=== PATIENT | male | born 1985 | race Caucasian/White ===

== ENCOUNTER 2016-10-13 11:43 | Emergency (ER) | payer BC, SELFPAY ==
[2016-10-13] MEDS ORDERED: NORCO, ANEXSIA 5/325MG TABLET (HYDROcodone/ACETAMINOPHEN) As Ordered ONE (12:49)
--- NOTE | 2016-10-13 13:47 | REP ---
LEFT FOREARM: Two views. HISTORY: Pain after injury. FINDINGS: AP and lateral views of the left forearm demonstrate normal bones, joints, and soft tissues. No fracture or subluxation is seen. IMPRESSION: Negative left forearm. Signed by Mihir Jaime MD 10/13/2016 02:25 P
--- NOTE | 2016-10-13 13:57 | REP ---
T-spine series: Three views. History: Pain after fall. Findings: Thoracic vertebral body heights are preserved and alignment is normal. No fracture or collapse is seen. Disc spaces are maintained. Pedicles and posterior elements are intact. No paravertebral soft tissue mass is seen. Impression: No fracture or collapse seen. Signed by Mihir Jaime MD 10/13/2016 02:25 P
--- NOTE | 2016-10-13 13:59 | REP ---
LUMBAR SPINE SERIES: Five views. HISTORY: Pain after a fall. FINDINGS: Five views of the lumbar spine show preserved vertebral body heights and normal alignment. Disc spaces are maintained. Pedicles and posterior elements are intact. No fracture or collapse is seen. Psoas margins are symmetric. Sacrum and SI joints are unremarkable. IMPRESSION: Negative lumbar spine series. No traumatic abnormality noted. Signed by Mihir Jaime MD 10/13/2016 02:25 P
--- NOTE | 2016-10-13 14:23 | EDDOCDS ---
Physician Documentation [facility] Name: Thomas Starr Age: 30 yrs Sex: Male : 1985 Arrival Date: 10/13/2016 Time: 11:43 Bed PR Private MD: NO PRIMARY PHYSICIAN, . Disposition: 10/13/16 14:06 Discharged to Home/Self Care. Impression: Fall due to ice and snow, Fall (on) (from) other stairs and steps, Contusion of back wall of thorax, Contusion of left forearm. - Condition is Stable. - Discharge Instructions: Contusion. - Prescriptions for [place] 5- 325 mg Oral Tablet - take 1 tablet by ORAL route every 6 hours As needed MDD: 4 tabs; 12 tablet. - Medication Reconciliation, Local Pharmacy Hours form. - Follow up: Emergency Department; When: As needed; Reason: Worsening of conditions. [facility]; When: Call to arrange an appointment; Reason: Recheck today's complaints, Continuance of care, To establish care. - Problem is new. - Symptoms are unchanged. - Notes: THERE WERE NO FRACTURES ON YOUR XRAYS TODAY. PLEASE FOLLOW UP WITH PRIMARY CARE IN THE NEXT WEEK TO RECHECK YOUR SYMPTOMS. RETURN TO THE ER WITH ANY WORSENING SYMPTOMS. Historical: - Allergies: no known allergies; - Home Meds: 1. none - PMHx: back fracture; - PSHx: Appendectomy; right knee; - Social history: Smoking status: Patient states was never smoker of tobacco. No barriers to communication noted, The patient speaks fluent Mohawk, Speaks appropriately for age. - Family history: Not pertinent. - : The pt / caregiver states he / she is not on anticoagulants. Home medication list is obtained from the patient. - Exposure Risk Screening:: None identified. Vital Signs: 10/13 11:45 BP 136 / 92; Pulse 74; Resp 18 S; Temp 96.6(O); Pulse Ox 99% on R/A; Weight 95.25 kg / gr2 209.99 lbs (R); Height 6 ft. 0 in. (182.88 cm); Pain 8/10; 13:49 BP 135 / 86; Pulse 63; Resp 18; Temp 97.9(T); Pulse Ox 97% on R/A; Pain 8/10; nb2 14:21 Pain 6/10; ck1 11:45 Body Mass Index 28.48 (95.25 kg, 182.88 cm) gr2 MDM: 12:45 HYDROcodone-acetaminophen 5 mg-325 mg 1 tabs PO once ordered. dt4 12:47 Spine, Thoracic 3 Views Ordered. EDMS 12:47 Spine. Lumbosacral, Complete Ordered. EDMS 12:47 Forearm (radius/ulna) Ordered. EDMS 12:53 Financial registration complete. mm15 14:16 [facility] Payment Agreement was scanned into [employer] and attached to record. mm15 Administered Medications: 12:50 Drug: HYDROcodone-acetaminophen 1 tabs [hydrocodone 5 mg-acetaminophen 325 mg tablet (1 ck1 tabs)] Route: PO; 14:21 Follow up: Pain 6 Adult; Response: Confirmed pt not driving.; No Adverse Reaction; ck1 No significant change. Signatures: Dispatcher [employer] EDNM Daly Henning RN RN ck1 Angeles Ponce RN RN jo3 Telma Meredith mm15 Neeru Mtz PA-C PAFina dt4 The chart was reviewed and I authenticate all verbal orders and agree with the evaluation and treatment provided.Attachments: 14:16 [facility] Payment Agreement mm15 MTDD
--- NOTE | 2016-10-13 14:23 | EDDOCDS ---
Nurse's Notes [facility] Name: Thomas Starr Age: 30 yrs Sex: Male : 1985 Arrival Date: 10/13/2016 Time: 11:43 Bed PR1 / 25 Private MD: NO PRIMARY PHYSICIAN, . Diagnosis: Fall due to ice and snow;Fall (on) (from) other stairs and steps;Contusion of back wall of thorax;Contusion of left forearm Presentation: 10/13 11:48 Presenting complaint: Patient states: Slipped and fell on stairs. Has c/o pain all over jo3 back and left arm above the elbow. Adult Sepsis Screening: The patient does not have new or worsening altered mentation. Patient's respiratory rate is less than 22. Systolic blood pressure is greater than 100. Patient has a qSOFA score of 0- Negative Sepsis Screen. Suicide/Homicide risk assessment- the patient denies having any suicidal and/or homicidal ideations and does not present with any other emotional, behavioral or mental health complaints. 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 Transition of care: patient was not received from another setting of care. 11:48 Acuity: MISSAEL Level 4 jo3 11:48 Method Of Arrival: Walkin/Carried/Asstd jo3 Triage Assessment: 11:50 General: Appears in no apparent distress, Behavior is appropriate for age, cooperative, jo3 pleasant. Pain: Pain currently is 8 out of 10 on a pain scale. HIV screening NA for this visit Offered previously. Historical: - Allergies: no known allergies; - Home Meds: 1. none - PMHx: back fracture; - PSHx: Appendectomy; right knee; - Social history: Smoking status: Patient states was never smoker of tobacco. No barriers to communication noted, The patient speaks fluent Hungarian, Speaks appropriately for age. - Family history: Not pertinent. - : The pt / caregiver states he / she is not on anticoagulants. Home medication list is obtained from the patient. - Exposure Risk Screening:: None identified. Screenin:51 Screening information is obtained from the patient. Fall risk: No risks identified. ck1 Assistance ADL's: requires no assistance with activities of daily living. Abuse/DV Screen: The patient / caregiver reports he/she is: not in a situation that causes fear, pain or injury. Nutritional screening: No deficits noted. Advance Directives: Currently, there is no health care proxy. home support is adequate. Assessment: 12:51 General: Appears uncomfortable, Behavior is appropriate for age, cooperative. Pain: ck1 Location: back Pain currently is 9 out of 10 on a pain scale. Derm: Skin is intact, is healthy with good turgor, Skin is pink, warm & dry. Musculoskeletal: Circulation, motion, and sensation intact Range of motion intact in all extremities. 13:50 General: Appears in no apparent distress, comfortable, Behavior is appropriate for age, ck1 cooperative. Pain: Location: back Pain currently is 6 out of 10 on a pain scale. Neurological: Level of Consciousness is awake, alert, obeys commands. Respiratory: Respiratory effort is unlabored, Respiratory pattern is regular, symmetrical. GI: No deficits noted. Derm: Skin is intact, is healthy with good turgor, Skin is pink, warm & dry. Musculoskeletal: Circulation, motion, and sensation intact Range of motion intact in all extremities. Vital Signs: 11:45 BP 136 / 92; Pulse 74; Resp 18 S; Temp 96.6(O); Pulse Ox 99% on R/A; Weight 95.25 kg gr2 (R); Height 6 ft. 0 in. (182.88 cm); Pain 8/10; 13:49 BP 135 / 86; Pulse 63; Resp 18; Temp 97.9(T); Pulse Ox 97% on R/A; Pain 8/10; nb2 14:21 Pain 6/10; ck1 11:45 Body Mass Index 28.48 (95.25 kg, 182.88 cm) gr2 Vitals: 11:45 Log In Time: October 13, 2016 at 11:45. gr2 ED Course: 11:44 Patient visited by Mario aWng. gr2 11:44 NO PRIMARY PHYSICIAN, . is Private Physician. gr2 11:44 Patient moved to Waiting gr2 11:46 Patient visited by Mario Wang. gr2 11:46 Patient moved to Pre RCE gr2 11:49 Triage Initiated jo3 11:50 Patient visited by Angeles Ponce RN. jo3 12:08 Patient moved to Triage 2 ck1 12:30 Neeru Mtz PA-C is PHCP. dt4 12:30 Hiader Monzon MD is Attending Physician. dt4 12:30 Patient visited by Neeru Mtz PA-C. dt4 12:50 Patient moved to 1 jf3 12:51 The patient / caregiver is instructed regarding the plan of care and ED course. ck1 12:51 No IV's were initiated during this patient's visit. No procedures done that require ck1 assistance. 13:46 Patient moved to PR1 / 25 kc3 13:49 Patient visited by Sylvia Gann. nb2 14:06 [facility] is Referral Physician. dt4 14:16 [facility] Payment Agreement was scanned into [employer] and attached to record. mm15 14:18 Forearm (radius/ulna) Returned. EDMS 14:18 Spine, Thoracic 3 Views Returned. EDMS 14:18 Spine. Lumbosacral, Complete Returned. EDMS Administered Medications: 12:50 Drug: HYDROcodone-acetaminophen 1 tabs [hydrocodone 5 mg-acetaminophen 325 mg tablet (1 ck1 tabs)] Route: PO; 14:21 Follow up: Pain 6/10 Adult; Response: Confirmed pt not driving.; No Adverse Reaction; ck1 No significant change. Order Results: Radiology Order: Spine, Thoracic 3 Views Test: Spine, Thoracic 3 Views REASON FOR EXAMINATION: LOWER T-SPINE PAIN AFTER FALL; T-spine series: Three views.; ; History: Pain after fall.; ; Findings: Thoracic vertebral body heights are preserved and alignment is normal.; No fracture or collapse is seen. Disc spaces are maintained. Pedicles and; posterior elements are intact. No paravertebral soft tissue mass is seen.; ; Impression:; ; No fracture or collapse seen.; ; ; ; ; Unreviewed; Radiology Order: Spine. Lumbosacral, Complete Test: Spine. Lumbosacral, Complete REASON FOR EXAMINATION: BACK PAIN AFTER INJURY; LUMBAR SPINE SERIES: Five views.; ; HISTORY: Pain after a fall.; ; FINDINGS: Five views of the lumbar spine show preserved vertebral body heights; and normal alignment. Disc spaces are maintained. Pedicles and posterior; elements are intact. No fracture or collapse is seen. Psoas margins are; symmetric. Sacrum and SI joints are unremarkable.; ; IMPRESSION:; Negative lumbar spine series. No traumatic abnormality noted.; ; ; ; ; Unreviewed; Radiology Order: Forearm (radius/ulna) Test: Forearm (radius/ulna) REASON FOR EXAMINATION: LEFT FOREARM PAIN/INJURY; LEFT FOREARM: Two views.; ; HISTORY: Pain after injury.; ; FINDINGS: AP and lateral views of the left forearm demonstrate normal bones,; joints, and soft tissues. No fracture or subluxation is seen.; ; IMPRESSION:; Negative left forearm.; ; ; ; ; Unreviewed; Outcome: 14:06 Discharge ordered by Provider. dt4 14:20 Discharge Assessment: Patient awake, alert and oriented x 3. No cognitive and/or ck1 functional deficits noted. Patient verbalized understanding of disposition instructions. patient administered narcotics - yes. Pt provided with safe discharge. The following High Risk Discharge criteria are identified: None. Discharged to home ambulatory, with significant other. Condition: stable. Discharge instructions given to patient, Instructed on discharge instructions, follow up and referral plans. medication usage, Demonstrated understanding of instructions, medications, Pt was receptive of discharge instructions/ teaching. Prescriptions given X 1. No special radiology studies were completed. Property :Personal belongings accompany Pt. 14:22 Patient left the ED. ck1 Signatures: Dispatcher [employer] EDMS Daly HenningRN RN ck1 Agneles PonceRN RN Mario Reardon gr2 Telma Meredith mm15 Neeru Mtz, PAFina PAKaelynC dt4 Gabrielle Cedeño,RN RN [email or web address] Demario CoronaRN RN jelani3 Sylvia Gann2 MTDD
--- NOTE | 2016-10-15 15:23 | EDDOCDS ---
Nurse's Notes [facility] Name: Thomas Starr Age: 30 yrs Sex: Male : 1985 Arrival Date: 10/13/2016 Time: 11:43 Bed PR1 / 25 Private MD: NO PRIMARY PHYSICIAN, . Diagnosis: Fall due to ice and snow;Fall (on) (from) other stairs and steps;Contusion of back wall of thorax;Contusion of left forearm Presentation: 10/13 11:48 Presenting complaint: Patient states: Slipped and fell on stairs. Has c/o pain all over jo3 back and left arm above the elbow. Adult Sepsis Screening: The patient does not have new or worsening altered mentation. Patient's respiratory rate is less than 22. Systolic blood pressure is greater than 100. Patient has a qSOFA score of 0- Negative Sepsis Screen. Suicide/Homicide risk assessment- the patient denies having any suicidal and/or homicidal ideations and does not present with any other emotional, behavioral or mental health complaints. 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 Transition of care: patient was not received from another setting of care. 11:48 Acuity: MISSAEL Level 4 jo3 11:48 Method Of Arrival: Walkin/Carried/Asstd jo3 Triage Assessment: 11:50 General: Appears in no apparent distress, Behavior is appropriate for age, cooperative, jo3 pleasant. Pain: Pain currently is 8 out of 10 on a pain scale. HIV screening NA for this visit Offered previously. Historical: - Allergies: no known allergies; - Home Meds: 1. none - PMHx: back fracture; - PSHx: Appendectomy; right knee; - Social history: Smoking status: Patient states was never smoker of tobacco. No barriers to communication noted, The patient speaks fluent Persian, Speaks appropriately for age. - Family history: Not pertinent. - : The pt / caregiver states he / she is not on anticoagulants. Home medication list is obtained from the patient. - Exposure Risk Screening:: None identified. Screenin:51 Screening information is obtained from the patient. Fall risk: No risks identified. ck1 Assistance ADL's: requires no assistance with activities of daily living. Abuse/DV Screen: The patient / caregiver reports he/she is: not in a situation that causes fear, pain or injury. Nutritional screening: No deficits noted. Advance Directives: Currently, there is no health care proxy. home support is adequate. Assessment: 12:51 General: Appears uncomfortable, Behavior is appropriate for age, cooperative. Pain: ck1 Location: back Pain currently is 9 out of 10 on a pain scale. Derm: Skin is intact, is healthy with good turgor, Skin is pink, warm & dry. Musculoskeletal: Circulation, motion, and sensation intact Range of motion intact in all extremities. 13:50 General: Appears in no apparent distress, comfortable, Behavior is appropriate for age, ck1 cooperative. Pain: Location: back Pain currently is 6 out of 10 on a pain scale. Neurological: Level of Consciousness is awake, alert, obeys commands. Respiratory: Respiratory effort is unlabored, Respiratory pattern is regular, symmetrical. GI: No deficits noted. Derm: Skin is intact, is healthy with good turgor, Skin is pink, warm & dry. Musculoskeletal: Circulation, motion, and sensation intact Range of motion intact in all extremities. Vital Signs: 11:45 BP 136 / 92; Pulse 74; Resp 18 S; Temp 96.6(O); Pulse Ox 99% on R/A; Weight 95.25 kg gr2 (R); Height 6 ft. 0 in. (182.88 cm); Pain 8/10; 13:49 BP 135 / 86; Pulse 63; Resp 18; Temp 97.9(T); Pulse Ox 97% on R/A; Pain 8/10; nb2 14:21 Pain 6/10; ck1 11:45 Body Mass Index 28.48 (95.25 kg, 182.88 cm) gr2 Vitals: 11:45 Log In Time: October 13, 2016 at 11:45. gr2 ED Course: 11:44 Patient visited by Mario Wang. gr2 11:44 NO PRIMARY PHYSICIAN, . is Private Physician. gr2 11:44 Patient moved to Waiting gr2 11:46 Patient visited by Mario Wang. gr2 11:46 Patient moved to Pre RCE gr2 11:49 Triage Initiated jo3 11:50 Patient visited by Angeles Ponce RN. jo3 12:08 Patient moved to Triage 2 ck1 12:30 Neeru Mtz PA-C is PHCP. dt4 12:30 Haider Monzon MD is Attending Physician. dt4 12:30 Patient visited by Neeru Mtz PA-C. dt4 12:50 Patient moved to TR1 jf3 12:51 The patient / caregiver is instructed regarding the plan of care and ED course. ck1 12:51 No IV's were initiated during this patient's visit. No procedures done that require ck1 assistance. 13:46 Patient moved to PR1 / 25 kc3 13:49 Patient visited by Sylvia Gann. nb2 14:06 [facility] is Referral Physician. dt4 14:16 [facility] Payment Agreement was scanned into [employer] and attached to record. mm15 14:18 Forearm (radius/ulna) Returned. EDMS 14:18 Spine, Thoracic 3 Views Returned. EDMS 14:18 Spine. Lumbosacral, Complete Returned. EDMS 10/14 10:24 T-Sheet-- Draft Copy was scanned into [employer] and attached to record. gb Administered Medications: 10/13 12:50 Drug: HYDROcodone-acetaminophen 1 tabs [hydrocodone 5 mg-acetaminophen 325 mg tablet (1 ck1 tabs)] Route: PO; 14:21 Follow up: Pain 6/10 Adult; Response: Confirmed pt not driving.; No Adverse Reaction; ck1 No significant change. Order Results: Radiology Order: Spine, Thoracic 3 Views Test: Spine, Thoracic 3 Views REASON FOR EXAMINATION: LOWER T-SPINE PAIN AFTER FALL; T-spine series: Three views.; ; History: Pain after fall.; ; Findings: Thoracic vertebral body heights are preserved and alignment is normal.; No fracture or collapse is seen. Disc spaces are maintained. Pedicles and; posterior elements are intact. No paravertebral soft tissue mass is seen.; ; Impression:; ; No fracture or collapse seen.; ; ; Signed by; Mihir Jaime MD 10/13/2016 02:25 P; Radiology Order: Spine. Lumbosacral, Complete Test: Spine. Lumbosacral, Complete REASON FOR EXAMINATION: BACK PAIN AFTER INJURY; LUMBAR SPINE SERIES: Five views.; ; HISTORY: Pain after a fall.; ; FINDINGS: Five views of the lumbar spine show preserved vertebral body heights; and normal alignment. Disc spaces are maintained. Pedicles and posterior; elements are intact. No fracture or collapse is seen. Psoas margins are; symmetric. Sacrum and SI joints are unremarkable.; ; IMPRESSION: Negative lumbar spine series. No traumatic abnormality noted.; ; ; Signed by; Mihir Jaime MD 10/13/2016 02:25 P; Radiology Order: Forearm (radius/ulna) Test: Forearm (radius/ulna) REASON FOR EXAMINATION: LEFT FOREARM PAIN/INJURY; LEFT FOREARM: Two views.; ; HISTORY: Pain after injury.; ; FINDINGS: AP and lateral views of the left forearm demonstrate normal bones,; joints, and soft tissues. No fracture or subluxation is seen.; ; IMPRESSION: Negative left forearm.; ; ; Signed by; Mihir Jaime MD 10/13/2016 02:25 P; Outcome: 14:06 Discharge ordered by Provider. dt4 14:20 Discharge Assessment: Patient awake, alert and oriented x 3. No cognitive and/or ck1 functional deficits noted. Patient verbalized understanding of disposition instructions. patient administered narcotics - yes. Pt provided with safe discharge. The following High Risk Discharge criteria are identified: None. Discharged to home ambulatory, with significant other. Condition: stable. Discharge instructions given to patient, Instructed on discharge instructions, follow up and referral plans. medication usage, Demonstrated understanding of instructions, medications, Pt was receptive of discharge instructions/ teaching. Prescriptions given X 1. No special radiology studies were completed. Property :Personal belongings accompany Pt. 14:22 Patient left the ED. ck1 Signatures: Dispatcher [employer] EDMS Lissa Doss, Reg Reg gb Daly HenningRN RN ck1 Angeles PonceRN RN Mario Reardon gr2 Telma Meredith mm15 Neeru Mtz, PA-C PA-C dt4 Gabrielle Cedeño RN RN kc3 Demario Corona,MARISA RN jelani3 Sylvia Gann2 Chart Complete MTDD
--- NOTE | 2016-10-15 15:23 | EDDOCDS ---
Physician Documentation [facility] Name: Thomas Starr Age: 30 yrs Sex: Male : 1985 Arrival Date: 10/13/2016 Time: 11:43 Bed PR Private MD: NO PRIMARY PHYSICIAN, . Disposition: 10/13/16 14:06 Discharged to Home/Self Care. Impression: Fall due to ice and snow, Fall (on) (from) other stairs and steps, Contusion of back wall of thorax, Contusion of left forearm. - Condition is Stable. - Discharge Instructions: Contusion. - Prescriptions for [place] 5- 325 mg Oral Tablet - take 1 tablet by ORAL route every 6 hours As needed MDD: 4 tabs; 12 tablet. - Medication Reconciliation, Local Pharmacy Hours form. - Follow up: Emergency Department; When: As needed; Reason: Worsening of conditions. [facility]; When: Call to arrange an appointment; Reason: Recheck today's complaints, Continuance of care, To establish care. - Problem is new. - Symptoms are unchanged. - Notes: THERE WERE NO FRACTURES ON YOUR XRAYS TODAY. PLEASE FOLLOW UP WITH PRIMARY CARE IN THE NEXT WEEK TO RECHECK YOUR SYMPTOMS. RETURN TO THE ER WITH ANY WORSENING SYMPTOMS. Historical: - Allergies: no known allergies; - Home Meds: 1. none - PMHx: back fracture; - PSHx: Appendectomy; right knee; - Social history: Smoking status: Patient states was never smoker of tobacco. No barriers to communication noted, The patient speaks fluent Bulgarian, Speaks appropriately for age. - Family history: Not pertinent. - : The pt / caregiver states he / she is not on anticoagulants. Home medication list is obtained from the patient. - Exposure Risk Screening:: None identified. Vital Signs: 10/13 11:45 BP 136 / 92; Pulse 74; Resp 18 S; Temp 96.6(O); Pulse Ox 99% on R/A; Weight 95.25 kg / gr2 209.99 lbs (R); Height 6 ft. 0 in. (182.88 cm); Pain 8/10; 13:49 BP 135 / 86; Pulse 63; Resp 18; Temp 97.9(T); Pulse Ox 97% on R/A; Pain 8/10; nb2 14:21 Pain 6/10; ck1 11:45 Body Mass Index 28.48 (95.25 kg, 182.88 cm) gr2 MDM: 12:45 HYDROcodone-acetaminophen 5 mg-325 mg 1 tabs PO once ordered. dt4 12:47 Spine, Thoracic 3 Views Ordered. EDMS 12:47 Spine. Lumbosacral, Complete Ordered. EDMS 12:47 Forearm (radius/ulna) Ordered. EDMS 12:53 Financial registration complete. mm15 14:16 [facility] Payment Agreement was scanned into [employer] and attached to record. mm15 10/14 10:24 T-Sheet-- Draft Copy was scanned into [employer] and attached to record. gb Administered Medications: 10/13 12:50 Drug: HYDROcodone-acetaminophen 1 tabs [hydrocodone 5 mg-acetaminophen 325 mg tablet (1 ck1 tabs)] Route: PO; 14:21 Follow up: Pain 6/10 Adult; Response: Confirmed pt not driving.; No Adverse Reaction; ck1 No significant change. Signatures: Dispatcher [employer] EDMS Lissa Doss, Reg Reg gb Dayl Henning RN RN ck1 Angeles Ponce RN RN jo3 Telma Meredith mm15 Neeru Mtz PA-C PA-C dt4 The chart was reviewed and I authenticate all verbal orders and agree with the evaluation and treatment provided.Attachments: 14:16 [facility] Payment Agreement mm15 10/14 10:24 T-Sheet-- Draft Copy gb Chart Complete MTDD
--- NOTE | 2016-10-15 15:23 | EDDOCDS ---
Physician Documentation [facility] Name: Thomas Starr Age: 30 yrs Sex: Male : 1985 Arrival Date: 10/13/2016 Time: 11:43 Bed PR Private MD: NO PRIMARY PHYSICIAN, . Disposition: 10/13/16 14:06 Discharged to Home/Self Care. Impression: Fall due to ice and snow, Fall (on) (from) other stairs and steps, Contusion of back wall of thorax, Contusion of left forearm. - Condition is Stable. - Discharge Instructions: Contusion. - Prescriptions for [place] 5- 325 mg Oral Tablet - take 1 tablet by ORAL route every 6 hours As needed MDD: 4 tabs; 12 tablet. - Medication Reconciliation, Local Pharmacy Hours form. - Follow up: Emergency Department; When: As needed; Reason: Worsening of conditions. [facility]: [facility]; When: Call to arrange an appointment; Reason: Recheck today's complaints, Continuance of care, To establish care. - Problem is new. - Symptoms are unchanged. - Notes: THERE WERE NO FRACTURES ON YOUR XRAYS TODAY. PLEASE FOLLOW UP WITH PRIMARY CARE IN THE NEXT WEEK TO RECHECK YOUR SYMPTOMS. RETURN TO THE ER WITH ANY WORSENING SYMPTOMS. Historical: - Allergies: no known allergies; - Home Meds: 1. none - PMHx: back fracture; - PSHx: Appendectomy; right knee; - Social history: Smoking status: Patient states was never smoker of tobacco. No barriers to communication noted, The patient speaks fluent Upper Sorbian, Speaks appropriately for age. - Family history: Not pertinent. - : The pt / caregiver states he / she is not on anticoagulants. Home medication list is obtained from the patient. - Exposure Risk Screening:: None identified. Vital Signs: 10/13 11:45 BP 136 / 92; Pulse 74; Resp 18 S; Temp 96.6(O); Pulse Ox 99% on R/A; Weight 95.25 kg / gr2 209.99 lbs (R); Height 6 ft. 0 in. (182.88 cm); Pain 8/10; 13:49 BP 135 / 86; Pulse 63; Resp 18; Temp 97.9(T); Pulse Ox 97% on R/A; Pain 8/10; nb2 14:21 Pain 6/10; ck1 11:45 Body Mass Index 28.48 (95.25 kg, 182.88 cm) gr2 MDM: 12:45 HYDROcodone-acetaminophen 5 mg-325 mg 1 tabs PO once ordered. dt4 12:47 Spine, Thoracic 3 Views Ordered. EDMS 12:47 Spine. Lumbosacral, Complete Ordered. EDMS 12:47 Forearm (radius/ulna) Ordered. EDMS 12:53 Financial registration complete. mm15 14:16 [facility] Payment Agreement was scanned into [employer] and attached to record. mm15 10/14 10:24 T-Sheet-- Draft Copy was scanned into [employer] and attached to record. gb Administered Medications: 10/13 12:50 Drug: HYDROcodone-acetaminophen 1 tabs [hydrocodone 5 mg-acetaminophen 325 mg tablet (1 ck1 tabs)] Route: PO; 14:21 Follow up: Pain 6/10 Adult; Response: Confirmed pt not driving.; No Adverse Reaction; ck1 No significant change. Signatures: Dispatcher [employer] EDMS Lissa Doss, Reg Reg gb Daly Henning RN RN ck1 Angeles Ponce RN RN jo3 Telma Meredith mm15 Neeru Mtz PA-C PA-C dt4 The chart was reviewed and I authenticate all verbal orders and agree with the evaluation and treatment provided.Attachments: 14:16 [facility] Payment Agreement mm15 10/14 10:24 T-Sheet-- Draft Copy gb Chart Complete MTDD
== END 2016-10-13 14:22 | disposition home or self-care (01) ==
LOC: M ED 11:43
DX: S20.229A Contusion of unspecified back wall of thorax, initial encounter (principal); S50.12XA Contusion of left forearm, initial encounter; W00.0XXA Fall on same level due to ice and snow, initial encounter; Y93.01 Activity, walking, marching and hiking; Y99.8 Other external cause status

== ENCOUNTER 2016-10-17 11:20 | Emergency (ER) | payer BC ==
[2016-10-17] MEDS ORDERED: KETOROLAC 30 MG/ML VIAL (J1885) As Ordered ONE (13:15)
[2016-10-17] MEDS ORDERED: BACTRIM 160MG/800MG DS TAB As Ordered ONE (13:15)
[2016-10-17] MEDS ORDERED: CYCLOBENZAPRINE 10 MG TAB As Ordered ONE (13:15)
--- NOTE | 2016-10-17 14:27 | EDDOCDS ---
Physician Documentation [facility] Name: Thomas Starr Age: 30 yrs Sex: Male : 1985 Arrival Date: 10/17/2016 Time: 11:20 Bed PR Private MD: [facility] Disposition: 10/17/16 14:17 Discharged to Home/Self Care. Impression: Cellulitis of abdominal wall, Contusion of back wall of thorax. - Condition is Stable. - Discharge Instructions: Cellulitis. - Prescriptions for naproxen 500 mg Oral tablet - take 1 tablet by ORAL route every 12 hours; 28 tablet. Bactrim DS 800- 160 mg Oral Tablet - take 1 tablet by ORAL route every 12 hours for 10 days; 20 tablet. Cyclobenzaprine 5 mg Oral Tablet - take 1 tablet by ORAL route 3 times per day As needed; 15 tablet. - Work Release Form - 4 day, Medication Reconciliation, Local Pharmacy Hours form. - Follow up: Emergency Department; When: As soon as possible; Reason: Worsening of conditions. Follow up: Private Physician; When: 2 - 3 days; Reason: Recheck today's complaints. - Problem is new. - Symptoms have worsened. Historical: - Allergies: no known allergies; - Home Meds: 1. [place] 5-325 mg Oral tab (Last dose: 10/17/2016 09:00) - PMHx: back fracture; - PSHx: Appendectomy; right knee; - Social history: Smoking status: Patient states was never smoker of tobacco. No barriers to communication noted, The patient speaks fluent Luxembourger, Speaks appropriately for age. - Family history: Not pertinent. - : The pt / caregiver states he / she is not on anticoagulants. Home medication list is obtained from the patient. - Exposure Risk Screening:: None identified. Vital Signs: 10/17 11:22 BP 133 / 91 RA Sitting (auto/lg); Pulse 84; Resp 16; Temp 97.9(T); Pulse Ox 98% on R/A; rs6 Weight 95.25 kg / 209.99 lbs (R); Height 6 ft. 0 in. (182.88 cm) (R); Pain 6/10; 13:56 BP 133 / 84; Pulse 70; Resp 16; Pulse Ox 98% on R/A; Pain 6/10; kr3 11:22 Body Mass Index 28.48 (95.25 kg, 182.88 cm) rs6 MDM: 12:30 [facility] Payment Agreement was scanned into [employer] and attached to record. lg 12:39 Financial registration complete. lg 13:09 ketorolac 60 mg IM once ordered. jk8 13:09 Cyclobenzaprine 10 mg PO once ordered. jk8 13:09 Trimethoprim-Sulfamethoxazole 160 mg-800 mg (DS) 1 tabs PO once ordered. jk8 Administered Medications: 13:19 Drug: ketorolac 60 mg [ketorolac 30 mg/mL (1 mL) injection solution (2 mL)] Route: IM; kr3 Site: left deltoid; 13:56 Follow up: BP 133 / 84; Pulse 70 bpm; Resp 16 bpm; Pulse Ox 98% RA; Pain 610 Adult; kr3 Response: No significant change. 13:19 Drug: Cyclobenzaprine 10 mg [cyclobenzaprine 10 mg tablet (1 tabs)] Route: PO; kr3 13:57 Follow up: Response: No Adverse Reaction kr3 13:19 Drug: Trimethoprim-Sulfamethoxazole 1 tabs [sulfamethoxazole 800 mg-trimethoprim 160 mg kr3 tablet (1 tabs)] Route: PO; Signatures: Anika Garcia, RN RN Sarah Araiza, Isidro Reg lg Jorgito Peacock, PA-C PA-C jk8 Demario Corona RN RN jf3 Radha Parmar RN kr3 The chart was reviewed and I authenticate all verbal orders and agree with the evaluation and treatment provided.Attachments: 12:30 [facility] Payment Agreement lg MTDD
--- NOTE | 2016-10-17 14:27 | EDDOCDS ---
Nurse's Notes [facility] Name: Thomas Starr Age: 30 yrs Sex: Male : 1985 Arrival Date: 10/17/2016 Time: 11:20 Bed PR Private MD: [facility] Diagnosis: Cellulitis of abdominal wall;Contusion of back wall of thorax Presentation: 10/17 11:24 Presenting complaint: Patient states: fell down stairs wed and xrays didn't show srm anything. pain more now when moving - mid to low back. and right upper back pain . seen here for xray on wed. also has abscess to stomach. Acute neurological deficits are not present. Mechanism of Injury: Fall. Adult Sepsis Screening: The patient does not have new or worsening altered mentation. Patient's respiratory rate is less than 22. Systolic blood pressure is greater than 100. Patient has a qSOFA score of 0- Negative Sepsis Screen. Suicide/Homicide risk assessment- the patient denies having any suicidal and/or homicidal ideations and does not present with any other emotional, behavioral or mental health complaints. Status: Patient is not a bookkeeping service sales agent or dependent. Transition of care: patient was not received from another setting of care. 11:24 Acuity: MISSAEL Level 4 srm 11:24 Method Of Arrival: Walkin/Carried/Asstd srm Triage Assessment: 11:26 General: Appears in no apparent distress, Behavior is appropriate for age, cooperative. srm Pain: Pain currently is 6 out of 10 on a pain scale. HIV screening NA for this visit Offered previously. Musculoskeletal: Reports right uppper back and mid to low back pain. Historical: - Allergies: no known allergies; - Home Meds: 1. [place] 5-325 mg Oral tab (Last dose: 10/17/2016 09:00) - PMHx: back fracture; - PSHx: Appendectomy; right knee; - Social history: Smoking status: Patient states was never smoker of tobacco. No barriers to communication noted, The patient speaks fluent Samoan, Speaks appropriately for age. - Family history: Not pertinent. - : The pt / caregiver states he / she is not on anticoagulants. Home medication list is obtained from the patient. - Exposure Risk Screening:: None identified. Screenin:19 Screening information is obtained from the patient. Fall risk: No risks identified. kr3 Assistance ADL's: requires no assistance with activities of daily living. Abuse/DV Screen: The patient / caregiver reports he/she is: not in a situation that causes fear, pain or injury. Nutritional screening: No deficits noted. Advance Directives: Currently, there is no health care proxy. home support is adequate. Assessment: 13:19 General: Appears uncomfortable, Behavior is appropriate for age, cooperative. Pain: kr3 Location: back. Neurological: No deficits noted. Respiratory: Respiratory effort is even, unlabored. Derm: Skin is normal. 13:57 Reassessment: Patient appears in no apparent distress at this time. reports no change kr3 in pain status. resting flat on stretcher. 14:25 General: Appears in no apparent distress, comfortable, Behavior is cooperative. Pain: jf3 Pain currently is 6 out of 10 on a pain scale. Neurological: Level of Consciousness is awake, alert, Oriented to person, place, time. Cardiovascular: Capillary refill < 3 seconds Chest pain is denied. Respiratory: Airway is patent Respiratory effort is even, unlabored, Respiratory pattern is regular, symmetrical, Denies shortness of breath. Vital Signs: 11:22 BP 133 / 91 RA Sitting (auto/lg); Pulse 84; Resp 16; Temp 97.9(T); Pulse Ox 98% on R/A; rs6 Weight 95.25 kg (R); Height 6 ft. 0 in. (182.88 cm) (R); Pain 6/10; 13:56 BP 133 / 84; Pulse 70; Resp 16; Pulse Ox 98% on R/A; Pain 6/10; kr3 11:22 Body Mass Index 28.48 (95.25 kg, 182.88 cm) rs6 Vitals: 11:22 Log In Time: October 17, 2016 at 11:22. rs6 ED Course: 11:21 Patient visited by Anita Simpson PCA. rs6 11:21 Patient moved to Waiting rs6 11:22 NO PRIMARY PHYSICIAN, . is Private Physician. rs6 11:22 [facility] is Private Physician. rs6 11:23 Patient visited by Anita Simpson PCA. rs6 11:23 Patient moved to Pre RCE rs6 11:25 Triage Initiated srm 12:13 Patient moved to Triage 1 sew 12:30 [facility] Payment Agreement was scanned into [employer] and attached to record. lg 12:36 Jorgito Peacock PA-C is PHCP. jk8 12:36 Roxi Yusuf MD is Attending Physician. jk8 12:36 Patient visited by Jorgito Peacock PA-C. jk8 13:14 Patient moved to [facility] 13:18 Patient visited by Radha Parmar RN. kr3 13:20 The patient / caregiver is instructed regarding the plan of care and ED course. Patient kr3 has correct armband on for positive identification. 13:20 No IV's were initiated during this patient's visit. No procedures done that require kr3 assistance. 13:56 Patient visited by aRdha Parmar RN. kr3 Administered Medications: 13:19 Drug: ketorolac 60 mg [ketorolac 30 mg/mL (1 mL) injection solution (2 mL)] Route: IM; kr3 Site: left deltoid; 13:56 Follow up: BP 133 / 84; Pulse 70 bpm; Resp 16 bpm; Pulse Ox 98% RA; Pain 6/10 Adult; kr3 Response: No significant change. 13:19 Drug: Cyclobenzaprine 10 mg [cyclobenzaprine 10 mg tablet (1 tabs)] Route: PO; kr3 13:57 Follow up: Response: No Adverse Reaction kr3 13:19 Drug: Trimethoprim-Sulfamethoxazole 1 tabs [sulfamethoxazole 800 mg-trimethoprim 160 mg kr3 tablet (1 tabs)] Route: PO; Order Results: There are currently no results for this order. Outcome: 14:17 Discharge ordered by Provider. jk8 14:26 Discharge Assessment: Patient awake, alert and oriented x 3. No cognitive and/or jf3 functional deficits noted. Patient verbalized understanding of disposition instructions. patient administered narcotics - no. The following High Risk Discharge criteria are identified: None. Discharged to home ambulatory. Condition: good. Discharge instructions given to patient, Instructed on discharge instructions, follow up and referral plans. medication usage, Demonstrated understanding of instructions, medications, Pt was receptive of discharge instructions/ teaching. No special radiology studies were completed. Property :Personal belongings accompany Pt. 14:26 Patient left the ED. jf3 Signatures: Anika Garcia, MARISA RN [facility] Sarah Juares, Reg Reg lg Radha Parmar,RN RN kr3 [place], Roxi Simpson, Anita, RADIO DESPATCHER RADIO DESPATCHER rs6 Jorgito Peacock, CHRISSY LOWE jk8 Demario Corona,RN RN jf3 MTDD
--- NOTE | 2016-10-19 15:27 | EDDOCDS ---
Physician Documentation [facility] Name: Thomas Starr Age: 30 yrs Sex: Male : 1985 Arrival Date: 10/17/2016 Time: 11:20 Bed PR Private MD: [facility] Disposition: 10/17/16 14:17 Discharged to Home/Self Care. Impression: Cellulitis of abdominal wall, Contusion of back wall of thorax. - Condition is Stable. - Discharge Instructions: Cellulitis. - Prescriptions for naproxen 500 mg Oral tablet - take 1 tablet by ORAL route every 12 hours; 28 tablet. Bactrim DS 800- 160 mg Oral Tablet - take 1 tablet by ORAL route every 12 hours for 10 days; 20 tablet. Cyclobenzaprine 5 mg Oral Tablet - take 1 tablet by ORAL route 3 times per day As needed; 15 tablet. - Work Release Form - 4 day, Medication Reconciliation, Local Pharmacy Hours form. - Follow up: Emergency Department; When: As soon as possible; Reason: Worsening of conditions. Follow up: Private Physician; When: 2 - 3 days; Reason: Recheck today's complaints. - Problem is new. - Symptoms have worsened. Historical: - Allergies: no known allergies; - Home Meds: 1. [place] 5-325 mg Oral tab (Last dose: 10/17/2016 09:00) - PMHx: back fracture; - PSHx: Appendectomy; right knee; - Social history: Smoking status: Patient states was never smoker of tobacco. No barriers to communication noted, The patient speaks fluent [place], Speaks appropriately for age. - Family history: Not pertinent. - : The pt / caregiver states he / she is not on anticoagulants. Home medication list is obtained from the patient. - Exposure Risk Screening:: None identified. Vital Signs: 10/17 11:22 BP 133 / 91 RA Sitting (auto/lg); Pulse 84; Resp 16; Temp 97.9(T); Pulse Ox 98% on R/A; rs6 Weight 95.25 kg / 209.99 lbs (R); Height 6 ft. 0 in. (182.88 cm) (R); Pain 6/10; 13:56 BP 133 / 84; Pulse 70; Resp 16; Pulse Ox 98% on R/A; Pain 6/10; kr3 11:22 Body Mass Index 28.48 (95.25 kg, 182.88 cm) rs6 MDM: 12:30 [facility] Payment Agreement was scanned into [employer] and attached to record. lg 12:39 Financial registration complete. lg 13:09 ketorolac 60 mg IM once ordered. jk8 13:09 Cyclobenzaprine 10 mg PO once ordered. jk8 13:09 Trimethoprim-Sulfamethoxazole 160 mg-800 mg (DS) 1 tabs PO once ordered. jk8 Administered Medications: 13:19 Drug: ketorolac 60 mg [ketorolac 30 mg/mL (1 mL) injection solution (2 mL)] Route: IM; kr3 Site: left deltoid; 13:56 Follow up: BP 133 / 84; Pulse 70 bpm; Resp 16 bpm; Pulse Ox 98% RA; Pain 610 Adult; kr3 Response: No significant change. 13:19 Drug: Cyclobenzaprine 10 mg [cyclobenzaprine 10 mg tablet (1 tabs)] Route: PO; kr3 13:57 Follow up: Response: No Adverse Reaction kr3 13:19 Drug: Trimethoprim-Sulfamethoxazole 1 tabs [sulfamethoxazole 800 mg-trimethoprim 160 mg kr3 tablet (1 tabs)] Route: PO; Signatures: Anika Garcia, RN RN Sarah Araiza, Isidro Reg lg Jorgito Peacock, PA-C PA-C jk8 Demario Corona RN RN jf3 Radha Parmar RN kr3 The chart was reviewed and I authenticate all verbal orders and agree with the evaluation and treatment provided.Attachments: 12:30 [facility] Payment Agreement lg Chart Complete MTDD
--- NOTE | 2016-10-19 15:27 | EDDOCDS ---
Physician Documentation [facility] Name: Thomas Starr Age: 30 yrs Sex: Male : 1985 Arrival Date: 10/17/2016 Time: 11:20 Bed PR Private MD: [facility] Disposition: 10/17/16 14:17 Discharged to Home/Self Care. Impression: Cellulitis of abdominal wall, Contusion of back wall of thorax. - Condition is Stable. - Discharge Instructions: Cellulitis. - Prescriptions for naproxen 500 mg Oral tablet - take 1 tablet by ORAL route every 12 hours; 28 tablet. Bactrim DS 800- 160 mg Oral Tablet - take 1 tablet by ORAL route every 12 hours for 10 days; 20 tablet. Cyclobenzaprine 5 mg Oral Tablet - take 1 tablet by ORAL route 3 times per day As needed; 15 tablet. - Work Release Form - 4 day, Medication Reconciliation, Local Pharmacy Hours form. - Follow up: Emergency Department; When: As soon as possible; Reason: Worsening of conditions. Follow up: Private Physician; When: 2 - 3 days; Reason: Recheck today's complaints. - Problem is new. - Symptoms have worsened. Historical: - Allergies: no known allergies; - Home Meds: 1. [place] 5-325 mg Oral tab (Last dose: 10/17/2016 09:00) - PMHx: back fracture; - PSHx: Appendectomy; right knee; - Social history: Smoking status: Patient states was never smoker of tobacco. No barriers to communication noted, The patient speaks fluent Kuwaiti, Speaks appropriately for age. - Family history: Not pertinent. - : The pt / caregiver states he / she is not on anticoagulants. Home medication list is obtained from the patient. - Exposure Risk Screening:: None identified. Vital Signs: 10/17 11:22 BP 133 / 91 RA Sitting (auto/lg); Pulse 84; Resp 16; Temp 97.9(T); Pulse Ox 98% on R/A; rs6 Weight 95.25 kg / 209.99 lbs (R); Height 6 ft. 0 in. (182.88 cm) (R); Pain 6/10; 13:56 BP 133 / 84; Pulse 70; Resp 16; Pulse Ox 98% on R/A; Pain 6/10; kr3 11:22 Body Mass Index 28.48 (95.25 kg, 182.88 cm) rs6 MDM: 12:30 [facility] Agreement was scanned into [employer] and attached to record. lg 12:39 Financial registration complete. lg 13:09 ketorolac 60 mg IM once ordered. jk8 13:09 Cyclobenzaprine 10 mg PO once ordered. jk8 13:09 Trimethoprim-Sulfamethoxazole 160 mg-800 mg (DS) 1 tabs PO once ordered. jk8 Administered Medications: 13:19 Drug: ketorolac 60 mg [ketorolac 30 mg/mL (1 mL) injection solution (2 mL)] Route: IM; kr3 Site: left deltoid; 13:56 Follow up: BP 133 / 84; Pulse 70 bpm; Resp 16 bpm; Pulse Ox 98% RA; Pain 610 Adult; kr3 Response: No significant change. 13:19 Drug: Cyclobenzaprine 10 mg [cyclobenzaprine 10 mg tablet (1 tabs)] Route: PO; kr3 13:57 Follow up: Response: No Adverse Reaction kr3 13:19 Drug: Trimethoprim-Sulfamethoxazole 1 tabs [sulfamethoxazole 800 mg-trimethoprim 160 mg kr3 tablet (1 tabs)] Route: PO; Signatures: Anika Garcia, RN RN Sarah Araiza, Isidro Reg lg Jorgito Peacock, PA-C PA-C jk8 Demario Corona RN RN jf3 Radha Parmar RN kr3 The chart was reviewed and I authenticate all verbal orders and agree with the evaluation and treatment provided.Attachments: 12:30 [facility] Payment Agreement lg Chart Complete MTDD
--- NOTE | 2016-10-19 15:28 | EDDOCDS ---
Nurse's Notes [facility] Name: Thomas Starr Age: 30 yrs Sex: Male : 1985 Arrival Date: 10/17/2016 Time: 11:20 Bed PR Private MD: [facility] Diagnosis: Cellulitis of abdominal wall;Contusion of back wall of thorax Presentation: 10/17 11:24 Presenting complaint: Patient states: fell down stairs wed and xrays didn't show srm anything. pain more now when moving - mid to low back. and right upper back pain . seen here for xray on wed. also has abscess to stomach. Acute neurological deficits are not present. Mechanism of Injury: Fall. Adult Sepsis Screening: The patient does not have new or worsening altered mentation. Patient's respiratory rate is less than 22. Systolic blood pressure is greater than 100. Patient has a qSOFA score of 0- Negative Sepsis Screen. Suicide/Homicide risk assessment- the patient denies having any suicidal and/or homicidal ideations and does not present with any other emotional, behavioral or mental health complaints. Status: Patient is not a answering service agent or dependent. Transition of care: patient was not received from another setting of care. 11:24 Acuity: MISSAEL Level 4 srm 11:24 Method Of Arrival: Walkin/Carried/Asstd srm Triage Assessment: 11:26 General: Appears in no apparent distress, Behavior is appropriate for age, cooperative. srm Pain: Pain currently is 6 out of 10 on a pain scale. HIV screening NA for this visit Offered previously. Musculoskeletal: Reports right uppper back and mid to low back pain. Historical: - Allergies: no known allergies; - Home Meds: 1. Candor 5-325 mg Oral tab (Last dose: 10/17/2016 09:00) - PMHx: back fracture; - PSHx: Appendectomy; right knee; - Social history: Smoking status: Patient states was never smoker of tobacco. No barriers to communication noted, The patient speaks fluent [place], Speaks appropriately for age. - Family history: Not pertinent. - : The pt / caregiver states he / she is not on anticoagulants. Home medication list is obtained from the patient. - Exposure Risk Screening:: None identified. Screenin:19 Screening information is obtained from the patient. Fall risk: No risks identified. kr3 Assistance ADL's: requires no assistance with activities of daily living. Abuse/DV Screen: The patient / caregiver reports he/she is: not in a situation that causes fear, pain or injury. Nutritional screening: No deficits noted. Advance Directives: Currently, there is no health care proxy. home support is adequate. Assessment: 13:19 General: Appears uncomfortable, Behavior is appropriate for age, cooperative. Pain: kr3 Location: back. Neurological: No deficits noted. Respiratory: Respiratory effort is even, unlabored. Derm: Skin is normal. 13:57 Reassessment: Patient appears in no apparent distress at this time. reports no change kr3 in pain status. resting flat on stretcher. 14:25 General: Appears in no apparent distress, comfortable, Behavior is cooperative. Pain: jf3 Pain currently is 6 out of 10 on a pain scale. Neurological: Level of Consciousness is awake, alert, Oriented to person, place, time. Cardiovascular: Capillary refill < 3 seconds Chest pain is denied. Respiratory: Airway is patent Respiratory effort is even, unlabored, Respiratory pattern is regular, symmetrical, Denies shortness of breath. Vital Signs: 11:22 BP 133 / 91 RA Sitting (auto/lg); Pulse 84; Resp 16; Temp 97.9(T); Pulse Ox 98% on R/A; rs6 Weight 95.25 kg (R); Height 6 ft. 0 in. (182.88 cm) (R); Pain 6/10; 13:56 BP 133 / 84; Pulse 70; Resp 16; Pulse Ox 98% on R/A; Pain 6/10; kr3 11:22 Body Mass Index 28.48 (95.25 kg, 182.88 cm) rs6 Vitals: 11:22 Log In Time: October 17, 2016 at 11:22. rs6 ED Course: 11:21 Patient visited by Anita Simpson PCA. rs6 11:21 Patient moved to Waiting rs6 11:22 NO PRIMARY PHYSICIAN, . is Private Physician. rs6 11:22 [facility] is Private Physician. rs6 11:23 Patient visited by Anita Simpson PCA. rs6 11:23 Patient moved to Pre RCE rs6 11:25 Triage Initiated srm 12:13 Patient moved to Triage 1 sew 12:30 [facility] Payment Agreement was scanned into [employer] and attached to record. lg 12:36 Jorgito Peacock PA-C is PHCP. jk8 12:36 Roxi Yusuf MD is Attending Physician. jk8 12:36 Patient visited by Jorgito Peacock PA-C. jk8 13:14 Patient moved to [facility] 13:18 Patient visited by Radha Parmar RN. kr3 13:20 The patient / caregiver is instructed regarding the plan of care and ED course. Patient kr3 has correct armband on for positive identification. 13:20 No IV's were initiated during this patient's visit. No procedures done that require kr3 assistance. 13:56 Patient visited by Radha Parmar RN. kr3 Administered Medications: 13:19 Drug: ketorolac 60 mg [ketorolac 30 mg/mL (1 mL) injection solution (2 mL)] Route: IM; kr3 Site: left deltoid; 13:56 Follow up: BP 133 / 84; Pulse 70 bpm; Resp 16 bpm; Pulse Ox 98% RA; Pain 6/10 Adult; kr3 Response: No significant change. 13:19 Drug: Cyclobenzaprine 10 mg [cyclobenzaprine 10 mg tablet (1 tabs)] Route: PO; kr3 13:57 Follow up: Response: No Adverse Reaction kr3 13:19 Drug: Trimethoprim-Sulfamethoxazole 1 tabs [sulfamethoxazole 800 mg-trimethoprim 160 mg kr3 tablet (1 tabs)] Route: PO; Order Results: There are currently no results for this order. Outcome: 14:17 Discharge ordered by Provider. jk8 14:26 Discharge Assessment: Patient awake, alert and oriented x 3. No cognitive and/or jf3 functional deficits noted. Patient verbalized understanding of disposition instructions. patient administered narcotics - no. The following High Risk Discharge criteria are identified: None. Discharged to home ambulatory. Condition: good. Discharge instructions given to patient, Instructed on discharge instructions, follow up and referral plans. medication usage, Demonstrated understanding of instructions, medications, Pt was receptive of discharge instructions/ teaching. No special radiology studies were completed. Property :Personal belongings accompany Pt. 14:26 Patient left the ED. jf3 Signatures: Anika Garcia, MARISA RN [facility] Sarah Juares, Reg Reg lg Radha Parmar,RN RN kr3 Quesada, Roxi Simpson, Anita, GROUP SALES COORDINATOR GROUP SALES COORDINATOR rs6 Jorgito Peacock, CHRISSY LOWE jk8 Demario Corona,RN RN jf3 Chart Complete MTDD
== END 2016-10-17 14:22 | disposition home or self-care (01) ==
LOC: M ED 11:20
DX: L02.211 Cutaneous abscess of abdominal wall (principal); S20.229A Contusion of unspecified back wall of thorax, initial encounter; W10.8XXA Fall (on) (from) other stairs and steps, initial encounter; Y92.89 Other specified places as the place of occurrence of the external cause; Y93.89 Activity, other specified; Y99.8 Other external cause status; Z87.81 Personal history of (healed) traumatic fracture
CPT/HCPCS: 96372; 99283; J1885

== ENCOUNTER 2016-10-20 12:55 | Inpatient (IN) | payer BC ==
[~2016-10-20] VITALS: Ht 182.9 cm; Wt 92.0 kg
[2016-10-20] MEDS ORDERED: CEFTAROLINE FOSAMIL 600 MG VIAL (TEFLARO) As Ordered ONE (16:11)
[2016-10-20 16:17] LABS: BASO % 0.2 % (0.0-1.0); EOS # 0.1 K/mm3 (0.0-0.50); EOS % 0.6 % (0.0-3.0); LARGE UNSTAINED CELL # 0.1 K/mm3 (0.0-0.4); LARGE UNSTAINED CELL % 1.3 % (0.0-4.0); LYMPH % 8.8 % (24.0-44.0); MEAN CORPUSCULAR HEMOGLOBIN 30.8 pg (27.0-33.0); MEAN CORPUSCULAR HGB CONC 34.5 g/dl (32.0-36.5); MEAN CORPUSCULAR VOLUME 89.2 fl (80.0-96.0); MONO # 0.4 K/mm3 (0.0-0.8); MONO % 3.9 % (0.0-5.0); NEUTROPHILS # 9.5 K/mm3 (1.8-7.7); NEUTROPHILS % 85.2 % (36.0-66.0); PLATELET COUNT, AUTOMATED 262 k/mm3 (150-450); RED CELL DISTRIBUTION WIDTH 11.7 % (11.5-14.5); WHITE BLOOD COUNT 11.2 K/mm3 (4.0-10.0)
[2016-10-20] MEDS ORDERED: MORPHINE 4 MG/ML 1ML SYRINGE As Ordered ONE (16:28)
[2016-10-20 16:37] LABS: ANION GAP 9 MEQ/L (8-16); BLOOD UREA NITROGEN 12 MG/DL (7-18); CALCIUM LEVEL 9.5 MG/DL (8.5-10.1); CARBON DIOXIDE LEVEL 26 MEQ/L (21-32); CHLORIDE LEVEL 100 MEQ/L (98-107); CREATININE FOR GFR 1.05 MG/DL (0.70-1.30); GLOMERULAR FILTRATION RATE > 60.0 (>60); GLUCOSE, FASTING 83 MG/DL (70-105); SODIUM LEVEL 135 MEQ/L (136-145)
--- NOTE | 2016-10-20 16:41 | REP ---
Left lower abdominal limited sonography. Abdominal wall ultrasound: History: Area of redness, tenderness and pain in the left periumbilical region of the anterior abdominal wall for the last 3 days. Question abscess. Findings: Scanning to the left of the umbilicus in the anterior abdominal wall demonstrates inflamed fat in this region. There is an irregularly marginated hypoechoic area with hyperechoic internal echogenicity measuring 1.7 x 0.9 x 2.0 cm. No internal Doppler flow or peripheral Doppler flow pattern is seen. Early abscess must be suspected. No other abnormalities seen. Impression: 2.0 cm irregular hypoechoic area may reflect developing abscess. Inflamed subcutaneous fat. Signed by Mihir Jaime MD 10/20/2016 05:12 P
[2016-10-20] MEDS ORDERED: NAPR500T2 PO (17:43)
[2016-10-20] MEDS ORDERED: CYCL5TA PO (17:43)
[2016-10-20] MEDS ORDERED: BACT800T5 PO (17:43)
[2016-10-20] MEDS ORDERED: ISOVUE-370 76% 100ML VIAL (Q9967) As Ordered ONE (18:36)
[2016-10-20] MEDS ORDERED: MORPHINE 2 MG/ML 1ML SYRINGE IV PRN (18:45)
[2016-10-20] MEDS ORDERED: ACETAMINOPHEN TAB 650MG DOSE (2X325MG) PO PRN (18:45)
[2016-10-20] MEDS ORDERED: ONDANSETRON 4MG/2ML VIAL (J2405) IV PRN (18:45)
--- NOTE | 2016-10-20 19:14 | REP ---
CT study abdomen and pelvis with IV contrast: History: Abdominal abscess, question extension. CT contrast dose: 100 ml of Isovue [address] findings: Preliminary digital duct layer radiograph is unremarkable. The lung bases show minimal plate-like atelectasis in the left base. No pleural effusion is seen. The liver and the spleen are normal in size and homogeneous in texture. No adrenal lesion is seen. Pancreas and gallbladder are unremarkable. Kidneys enhance symmetrically and are morphologically intact. There is no evidence of hydronephrosis, cyst or mass. 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 Normal caliber aorta. Seminal vesicles, prostate, and urinary bladder are unremarkable. Small and large intestinal bowel loops are normal. No abdominal wall defect is seen. The appendix is surgically absent. Bone window settings show no bony destructive lesion. No abdominal wall defect is seen. There is an area of induration and inflammation and skin thickening located to the left and caudal to the umbilicus. There is some edema in the umbilicus itself. No abscess could be visualized by CT. The inflammation appears to be limited to the subcutaneous fat layer of the left lower quadrant abdominal wall. The rectus abdominis muscles are normal and symmetric. No hernia, mass, adenopathy or abnormal fluid collection is seen. Impression: Area of induration seen in the left lower quadrant anterior abdominal wall. This inflammatory process appears limited by CT criteria to the subcutaneous fat layer. Signed by Mihir Jaime MD 10/20/2016 08:00 P
--- NOTE | 2016-10-20 19:25 | HPEPDOC ---
Medical History and Physical Date of Admission 10/20/16 History and Physical PRIMARY CARE PROVIDER: ATTENDING: Hermes Ragsdale MD CHIEF COMPLAINT: Abd pain HISTORY OF PRESENT ILLNESS: This is a 30-year-old male with significant past medical history presents complaining of abdominal pain. Patient states he developed a boil on his abdomen on Tuesday, presented to the ED, was given Bactrim which he had taken since then, however states his been developing increased area of erythema and pain around the boil. Patient states he tried warm compresses. Has been taking his antibiotics daily. Does have chills however no fevers. Patient denies chest pain/shortness of breath/palpitations. Patient denies nausea/vomiting. Has constipation with the past 2 days. Increased urinary frequency. No dysuria. PAST MEDICAL HISTORY: As per HPI PAST SURGICAL HISTORY: Appendectomy, Right knee surgery SOCIAL HISTORY: Denies tobacco, alcohol, illicit drug use. FAMILY HISTORY: M- B cell lymphoma, F - colon cancer ALLERGIES: Please see below. REVIEW OF SYSTEMS: HEENT: Denies sore throat/headache CARDIOVASCULAR: Denies chest pain/palpitations RESPIRATORY: No shortness of breath/cough GASTROINTESTINAL: denies nausea/vomiting GENITOURINARY: Denies dysuria/urinary urgency. MUSCULOSKELETAL: Denies myalgias/arthralgias NEUROLOGICAL: Denies any focal weakness Rest of ROS negative. HOME MEDICATIONS: Please see below. PHYSICAL EXAMINATION: Vitals: (see below) General: No acute distress, laying comfortably in bed. HEENT: Moist mucous membranes. Neck: No JVD or lymphadenopathy Cardiac: RRR, No murmurs Pulm: Clear to auscultation b/l. No wheezing, rhonchi Abd: NT/ND + BS. Large region of cellulitis with 3x4cm induration. no drainage. + warmth. Ext: No edema or cyanosis LABORATORY DATA: See below. IMAGING: Abd U/S 10/20/16 Findings: Scanning to the left of the umbilicus in the anterior abdominal wall demonstrates inflamed fat in this region. There is an irregularly marginated hypoechoic area with hyperechoic internal echogenicity measuring 1.7 x 0.9 x 2.0cm. No internal Doppler flow or peripheral Doppler flow pattern is seen. Early abscess must be suspected. No other abnormalities seen. Impression: 2.0 cm irregular hypoechoic area may reflect developing abscess. Inflamed subcutaneous fat. MICROBIOLOGY: Please see below. ASSESSMENT/PLAN: Abdominal wall abscess - Initially developed as folliculitis, failed Bactrim output since Tuesday. Mild leukocytosis. Afebrile. + Chills. Abdominal u/s (see above). C/o increased constipation, urinary frequency. Will obtain CT abd/ pelvis to better determine extent of abscess. Ceftaroline BID. Blood cx pending. Consider surgery consult for I&D if no significant improvement on Abx. Pt will be followed by Dr. Sol Batres starting 10/20/16 at 7am. Laboratory Data Labs 24H Laboratory Tests 2 10/20/16 15:57: Anion Gap 9, White Blood Count 11.2H, Red Blood Count 5.30, Hemoglobin 16.3, Hematocrit 47.3, Mean Corpuscular Volume 89.2, Mean Corpuscular Hemoglobin 30.8 , Mean Corpuscular Hemoglobin Concent 34.5, Red Cell Distribution Width 11.7, Platelet Count 262, Neutrophils (%) (Auto) 85.2H, Lymphocytes (%) (Auto) 8.8L, Monocytes (%) (Auto) 3.9, Eosinophils (%) (Auto) 0.6, Basophils (%) (Auto) 0.2, Neutrophils # (Auto) 9.5H, Lymphocytes # (Auto) 1.0L, Monocytes # (Auto) 0.4, Eosinophils # (Auto) 0.1, Basophils # (Auto) 0.0, Blood Urea Nitrogen 12, Creatinine 1.05, Sodium Level 135L, Potassium Level 4.0, Chloride Level 100, Carbon Dioxide Level 26, Calcium Level 9.5, Glomerular Filtration Rate > 60.0, Lactic Acid (Sepsis) 1.0, Large Unclassified Cells # 0.1, Large Unclassified Cells % 1.3 CBC/BMP Laboratory Tests 10/20/16 15:57 Calcium Level 9.5, Red Blood Count 5.30, Mean Corpuscular Volume 89.2, Mean Corpuscular Hemoglobin 30.8, Mean Corpuscular Hemoglobin Concent 34.5, Red Cell Distribution Width 11.7, Neutrophils (%) (Auto) 85.2 H, Lymphocytes (%) (Auto) 8.8 L, Monocytes (%) (Auto) 3.9, Eosinophils (%) (Auto) 0.6, Basophils (%) (Auto ) 0.2, Neutrophils # (Auto) 9.5 H, Lymphocytes # (Auto) 1.0 L, Monocytes # (Auto ) 0.4, Eosinophils # (Auto) 0.1, Basophils # (Auto) 0.0 Microbiology Microbiology 10/20/16 Blood Culture, Received Pending 10/20/16 Blood Culture, Received Pending Home Medications Scheduled Trimethoprim/Sulfamethoxazole (Bactrim Ds 800-160 mg) 1 Tab Tab 1 TAB PO BID STARTED 10/18/16 FOR 10 DAYS Scheduled PRN Cyclobenzaprine HCl (Cyclobenzaprine HCl) 5 Mg Tab 5 MG PO TID PRN PRN SPASMS Naproxen (Naproxen) 500 Mg Tab 500 MG PO BID PRN PRN PAIN Allergies Coded Allergies: No Known Allergies (Verified , 03/18/03) Uncoded Allergies: N (Allergy, Unknown, 03/18/03) NKA (Allergy, Unknown, 03/18/03) HERMES RAGSDALE MD Oct 20, 2016 19:25
[2016-10-20] MEDS ORDERED: MORPHINE 2 MG/ML 1ML SYRINGE As Ordered ONE (19:38)
--- NOTE | 2016-10-20 20:02 | EDDOCDS ---
Physician Documentation [facility] Name: Thomas Starr Age: 30 yrs Sex: Male : 1985 Arrival Date: 10/20/2016 Time: 12:55 Bed I4 / M4 Private MD: [facility] Disposition: 10/20/16 17:24 Hospitalization ordered by Edinson Ragsdale for Inpatient Admission. Preliminary diagnosis are Cutaneous abscess of abdominal wall, Cellulitis of abdominal wall. - Bed requested for 4 [place]. - Status is Inpatient Admission. mb9 - Condition is Stable. - Problem is new. - Symptoms are unchanged. Historical: - Allergies: No known drug Allergies; - Home Meds: 1. naproxen 500 mg Oral tab 1 tab stopped taking 3 days ago 2. Bactrim DS 800-160 mg Oral tab 1 tab every 12 hours (Last dose: 10/20/2016 00:02) 3. cyclobenzaprine 5 mg Oral tab 1 tab 3 times per day stopped taking 3 days ago - PMHx: none; - PSHx: Appendectomy; right knee; - Social history: Smoking status: Patient states was never smoker of tobacco. No barriers to communication noted, The patient speaks fluent Tajik. - Family history: Not pertinent. - : The pt / caregiver states he / she is not on anticoagulants. Home medication list is obtained from the patient. - Exposure Risk Screening:: None identified. Vital Signs: 10/20 12:57 BP 154 / 92; Pulse 106; Resp 18 S; Temp 97.6(O); Pulse Ox 97% on R/A; Weight 95.25 kg / gr2 209.99 lbs (R); Height 6 ft. 0 in. (182.88 cm) (R); Pain 10/10; 17:23 BP 142 / 88; Pulse 88; Resp 20; Temp 99.1(O); Pulse Ox 96% on R/A; Pain 7/10; dsf 17:31 Pain 7/10; ja5 19:13 BP 151 / 82; Pulse 84; Resp 18; Temp 99.9; Pulse Ox 97% ; Pain 10/10; ajs 12:57 Body Mass Index 28.48 (95.25 kg, 182.88 cm) gr2 MDM: 15:44 IV Saline Lock ordered. ar2 15:44 -Blood Culture (Adults Only), peripheral from different site, or from device/port/PICC ar2 etc. if present ordered. 15:44 Ceftaroline Fosamil 600 mg IV at calculated rate once over 30 mins; reconstitute with ar2 20mL NS or SW, then dilulte in 50mL of NS, D5W or LR ordered. 15:44 NS 0.9% 1000 ml IV at bolus once ordered. ar2 15:45 CBC with Diff Ordered. EDMS 15:45 MED Profile Ordered. EDMS 15:45 Lactic Acid (Sher tube on ice) Ordered. EDMS 15:46 -Blood Culture Ordered. EDMS 15:46 ABD US: Limited Ordered. EDMS 15:54 -Blood Culture (Adults Only), peripheral from different site, or from device/port/PICC ct3 etc. if present complete. 15:58 BLOOD CULTURES Ordered. EDMS 16:27 morphine 4 mg IVP once ordered. ar2 16:42 Financial registration complete. gjb 16:45 COUNT INCLUDES THE [facility] Payment Agreement was scanned into [employer] and attached to record. gjb 17:10 CBC with Diff Reviewed. ar2 17:10 MED Profile Reviewed. ar2 17:10 Lactic Acid (Sher tube on ice) Reviewed. ar2 17:21 BED REQUEST+ADM ordered. EDMS 18:33 CT ABD & PELVIS WITH CONTRAST Ordered. EDMS 18:42 Admission / Observation Status ordered. EDMS 18:42 REGULAR DIET ordered. EDMS 19:38 morphine 2 mg IVP once ordered. jmb Administered Medications: 16:17 Drug: NS 0.9% 1000 ml [sodium chloride 0.9 % injection solution] Route: IV; Rate: dsf bolus; Site: right antecubital; 17:31 Follow up: IV Status: Completed infusion 5 16:25 Drug: Ceftaroline Fosamil 600 mg [ceftaroline fosamil 600 mg intravenous solution] [facility] Route: IV; Rate: calculated rate; Infused Over: 30 mins; Site: right antecubital; 17:31 Follow up: IV Status: Completed infusion ja5 16:35 Drug: morphine 4 mg [morphine 4 mg/mL intravenous cartridge (1 mL)] Route: IVP; Site: ja5 right antecubital; 17:31 Follow up: Pain 7/10 Adult 5 19:40 Drug: morphine 2 mg [morphine 2 mg/mL intravenous cartridge (1 mL)] Route: IVP; Site: [facility] right antecubital; Signatures: Dispatcher [employer] [place] PA-C PA-C ar2 Adela Montoya RN RN hs1 Angeles Ramey RN RN jc4 Chanel Vazquez, REHABILITATION PROGRAM MANAGER REHABILITATION PROGRAM MANAGER ct3 Nav Castro RN RN jmb Belles, MichaelRN RN [email or web address] Debby Reich Steven, RN RN sa Fuller, Desiree RN dsf Anderson, Jessica RN ja5 The chart was reviewed and I authenticate all verbal orders and agree with the evaluation and treatment provided.Corrections: (The following items were deleted from the chart) 13:03 13:00 PMHx: back fracture [Inactive]; hs1 hs1 Attachments: 16:45 [facility] [place] Payment Agreement [email or web address]
--- NOTE | 2016-10-20 20:02 | EDDOCDS ---
Nurse's Notes [facility] Name: Thomas Starr Age: 30 yrs Sex: Male : 1985 Arrival Date: 10/20/2016 Time: 12:55 Bed I4 / M4 Private MD: [facility] Diagnosis: Cutaneous abscess of abdominal wall;Cellulitis of abdominal wall Presentation: 10/20 12:59 Presenting complaint: Patient states: cellulitis is worse on stomach and is here for hs1 recheck. Patient states feeling worse and having fever and chills. Risk factors: the patient reports not having a history of previous torsion. Adult Sepsis Screening: The patient does not have new or worsening altered mentation. Patient's respiratory rate is less than 22. Systolic blood pressure is greater than 100. Patient has a qSOFA score of 0- Negative Sepsis Screen. Suicide/Homicide risk assessment- the patient denies having any suicidal and/or homicidal ideations and does not present with any other emotional, behavioral or mental health complaints. Status: Patient is not a marketing services vice president or dependent. Transition of care: patient was not received from another setting of care. 12:59 Acuity: MISSAEL Level 3 hs1 12:59 Method Of Arrival: Walkin/Carried/Asstd hs1 Triage Assessment: 13:03 General: Appears uncomfortable, Behavior is agitated, anxious, cooperative. Pain: hs1 Location: abdomen Pain currently is 10 out of 10 on a pain scale. HIV screening NA for this visit Offered previously. Neurological: No deficits noted. Respiratory: Airway is patent Respiratory effort is even, unlabored, Respiratory pattern is regular, symmetrical. GI: Denies nausea. Derm: Skin is red, Skin temperature is hot on right lower quadrant and left lower quadrant. Historical: - Allergies: No known drug Allergies; - Home Meds: 1. naproxen 500 mg Oral tab 1 tab stopped taking 3 days ago 2. Bactrim DS 800-160 mg Oral tab 1 tab every 12 hours (Last dose: 10/20/2016 00:02) 3. cyclobenzaprine 5 mg Oral tab 1 tab 3 times per day stopped taking 3 days ago - PMHx: none; - PSHx: Appendectomy; right knee; - Social history: Smoking status: Patient states was never smoker of tobacco. No barriers to communication noted, The patient speaks fluent Barbadian. - Family history: Not pertinent. - : The pt / caregiver states he / she is not on anticoagulants. Home medication list is obtained from the patient. - Exposure Risk Screening:: None identified. Screenin:54 Screening information is obtained from the patient. Fall risk: No risks identified. jc4 Assistance ADL's: requires no assistance with activities of daily living. Abuse/DV Screen: The patient / caregiver reports he/she is: not in a situation that causes fear, pain or injury. Nutritional screening: No deficits noted. Advance Directives: Currently, there is no health care proxy. There is no active DNR order. There is no living will. There is no Power of Fish Roe [employer]or. home support is adequate. Assessment: 16:05 General: Appears in no apparent distress, Behavior is cooperative, pleasant. jc4 Neurological: Level of Consciousness is awake, alert, Oriented to person, place, time. Respiratory: Airway is patent Respiratory effort is even, unlabored, Respiratory pattern is regular, symmetrical. GI: Abdomen is non- distended other redness noted in left lower quadrant, small open area noted Bowel sounds present X 4 quads. Abd is tender to palpation in left lower quadrant. 16:17 General: abdominal wall cellulitis marked with marker and measured 30 cm length and 11 dsf cm height . 17:23 Adult Sepsis Screening: The patient does not have new or worsening altered mentation. dsf Patient's respiratory rate is less than 22. Systolic blood pressure is greater than 100. Patient has a qSOFA score of 0- Negative Sepsis Screen. General: Appears in no apparent distress, Behavior is appropriate for age, cooperative. Pain: Location: abdomen Pain currently is 7 out of 10 on a pain scale. Neurological: Level of Consciousness is awake, alert. Cardiovascular: Capillary refill < 3 seconds. Respiratory: Airway is patent Respiratory effort is even, unlabored, Respiratory pattern is regular, symmetrical. Derm: large reddened area to lower abdomen warm to touch and tender. 18:49 General: Pt returned from CT. Pt states that pain is not improved since Morphine jc4 administered. 19:06 General: Appears in no apparent distress, Behavior is appropriate for age, cooperative, jmb Patient sitting in room eating jreck's subs with family at bedside. NO voiced complaints at this time. . Neurological: Level of Consciousness is awake, alert, obeys commands, Oriented to person, place, time, Speech is normal, Facial symmetry appears normal, Facial symmetry: tongue is midline. Cardiovascular: Capillary refill < 3 seconds Heart tones present Pulses are all present. Rhythm is regular. Respiratory: Airway is patent Respiratory effort is even, unlabored, Respiratory pattern is regular, symmetrical, Breath sounds are clear bilaterally. GI: Abdomen is non- distended. Derm: Skin is pink, warm & dry. Musculoskeletal: Range of motion intact in all extremities. Vital Signs: 12:57 BP 154 / 92; Pulse 106; Resp 18 S; Temp 97.6(O); Pulse Ox 97% on R/A; Weight 95.25 kg gr2 (R); Height 6 ft. 0 in. (182.88 cm) (R); Pain 10/10; 17:23 BP 142 / 88; Pulse 88; Resp 20; Temp 99.1(O); Pulse Ox 96% on R/A; Pain 7/10; dsf 17:31 Pain 7/10; ja5 19:13 BP 151 / 82; Pulse 84; Resp 18; Temp 99.9; Pulse Ox 97% ; Pain 10/10; ajs 12:57 Body Mass Index 28.48 (95.25 kg, 182.88 cm) gr2 Vitals: 12:57 Log In Time: October 20, 2016 at 12:57. gr2 ED Course: 12:56 Patient visited by Mario Wang. gr2 12:56 [facility] is Private Physician. gr2 12:56 Patient moved to Waiting gr2 12:58 Patient visited by Mario Wang. gr2 12:58 Patient moved to Pre RCE gr2 13:00 Triage Initiated hs1 15:11 Patient moved to Triage 3 ttb 15:29 Hamlet Mccartney PA-C is PHCP. ar2 15:29 Blanco Jacobo MD is Attending Physician. ar2 15:29 Patient visited by Hamlet Mccartney PA-C. ar2 15:45 Angeles Ramey, MARISA is Primary Nurse. mlb1 15:45 Dai Palma,MARISA is Primary Nurse. mlb1 15:45 Patient moved to I4 / M4 mlb1 16:03 Patient visited by Angeles Ramey RN. jc4 16:03 BLOOD CULTURES Sent. jc4 16:04 Lactic Acid (Sher tube on ice) Sent. jc4 16:04 -Blood Culture Sent. jc4 16:04 MED Profile Sent. jc4 16:04 CBC with Diff Sent. jc4 16:04 Inserted saline lock: 20 gauge in right antecubital area The patient tolerated the jc4 procedure well. 16:05 The patient / caregiver is instructed regarding the plan of care and ED course. jc4 16:06 Patient moved to Ultrasound am10 16:15 Patient moved to I4 / M4 am10 16:18 Patient visited by Natalia Bhardwaj RN. dsf 16:45 [facility] Payment Agreement was scanned into [employer] and attached to record. gjb 17:23 Edinson Ragsdale is Hospitalizing Provider. ar2 17:23 ABD US: Limited Returned. EDMS 17:25 Patient visited by Natalia Bhardwaj RN. dsf 19:09 Patient visited by Nav Castro RN. b 19:13 Patient visited by Marly Contreras. ajs 19:17 CT ABD & PELVIS WITH CONTRAST Returned. EDMS 20:00 No procedures done that require assistance. mb9 Administered Medications: 16:17 Drug: NS 0.9% 1000 ml [sodium chloride 0.9 % injection solution] Route: IV; Rate: dsf bolus; Site: right antecubital; 17:31 Follow up: IV Status: Completed infusion [facility] 16:25 Drug: Ceftaroline Fosamil 600 mg [ceftaroline fosamil 600 mg intravenous solution] [facility] Route: IV; Rate: calculated rate; Infused Over: 30 mins; Site: right antecubital; 17:31 Follow up: IV Status: Completed infusion [facility] 16:35 Drug: morphine 4 mg [morphine 4 mg/mL intravenous cartridge (1 mL)] Route: IVP; Site: [facility] right antecubital; 17:31 Follow up: Pain 7/10 Adult [facility] 19:40 Drug: morphine 2 mg [morphine 2 mg/mL intravenous cartridge (1 mL)] Route: IVP; Site: [facility] right antecubital; Order Results: Lab Order: CBC with Diff; SPEC'M 10/20/16 15:57 Test: WHITE BLOOD COUNT; Value: 11.2; Range: 4.0-10.0; Abnormal: Above high normal; Units: K/mm3; Status: F Test: RED BLOOD COUNT; Value: 5.30; Range: 4.30-6.10; Units: M/mm3; Status: F Test: HEMOGLOBIN; Value: 16.3; Range: 14.0-18.0; Units: g/dl; Status: F Test: HEMATOCRIT; Value: 47.3; Range: 42.0-52.0; Units: %; Status: F Test: MEAN CORPUSCULAR VOLUME; Value: 89.2; Range: 80.0-96.0; Units: fl; Status: F Test: MEAN CORPUSCULAR HEMOGLOBIN; Value: 30.8; Range: 27.0-33.0; Units: pg; Status: F Test: MEAN CORPUSCULAR HGB CONC; Value: 34.5; Range: 32.0-36.5; Units: g/dl; Status: F Test: RED CELL DISTRIBUTION WIDTH; Value: 11.7; Range: 11.5-14.5; Units: %; Status: F Test: PLATELET COUNT, AUTOMATED; Value: 262; Range: 150-450; Units: k/mm3; Status: F Test: NEUTROPHILS %; Value: 85.2; Range: 36.0-66.0; Abnormal: Above high normal; Units: %; Status: F Test: LYMPH %; Value: 8.8; Range: 24.0-44.0; Abnormal: Below low normal; Units: %; Status: F Test: MONO %; Value: 3.9; Range: 0.0-5.0; Units: %; Status: F Test: EOS %; Value: 0.6; Range: 0.0-3.0; Units: %; Status: F Test: BASO %; Value: 0.2; Range: 0.0-1.0; Units: %; Status: F Test: LARGE UNSTAINED CELL %; Value: 1.3; Range: 0.0-4.0; Units: %; Status: F Test: NEUTROPHILS #; Value: 9.5; Range: 1.8-7.7; Abnormal: Above high normal; Units: K/mm3; Status: F Test: LYMPH #; Value: 1.0; Range: 1.5-4.5; Abnormal: Below low normal; Units: K/mm3; Status: F Test: MONO #; Value: 0.4; Range: 0.0-0.8; Units: K/mm3; Status: F Test: EOS #; Value: 0.1; Range: 0.0-0.50; Units: K/mm3; Status: F Test: BASO #; Value: 0.0; Range: 0.0-0.2; Units: K/mm3; Status: F Test: LARGE UNSTAINED CELL #; Value: 0.1; Range: 0.0-0.4; Units: K/mm3; Status: F Lab Order: MED Profile; SPEC'M 10/20/16 15:57 Test: GLUCOSE, FASTING; Value: 83; Range: 70-105; Units: MG/DL; Status: F Test: BLOOD UREA NITROGEN; Value: 12; Range: 7-18; Units: MG/DL; Status: F Test: CREATININE FOR GFR; Value: 1.05; Range: 0.70-1.30; Units: MG/DL; Status: F Test: GLOMERULAR FILTRATION RATE; Value: > 60.0; Range: >60; Status: F Test: SODIUM LEVEL; Value: 135; Range: 136-145; Abnormal: Below low normal; Units: MEQ/L; Status: F Test: POTASSIUM SERUM; Value: 4.0; Range: 3.5-5.1; Units: MEQ/L; Status: F Test: CHLORIDE LEVEL; Value: 100; Range: 98-107; Units: MEQ/L; Status: F Test: CARBON DIOXIDE LEVEL; Value: 26; Range: 21-32; Units: MEQ/L; Status: F Test: ANION GAP; Value: 9; Range: 8-16; Units: MEQ/L; Status: F Test: CALCIUM LEVEL; Value: 9.5; Range: 8.5-10.1; Units: MG/DL; Status: F Test Note: ; Units are mL/min/1.73 m2 Chronic Kidney Disease Staging per NKF: Stage I & II GFR >=60 Normal to Mildly Decreased Stage III GFR 30-59 Moderately Decreased Stage IV GFR 15-29 Severely Decreased Stage V GFR <15 Very Little GFR Left ESRD GFR <15 on MAINTENANCE MECHANIC TECHNICIAN Lab Order: Lactic Acid (Sher tube on ice); SPEC'M 10/20/16 15:57 Test: LACTIC ACID SEPSIS PROTOCOL; Value: 1.0; Range: 0.4-2.0; Units: MMOL/L; Status: F Radiology Order: ABD US: Limited Test: ABD US: Limited REASON FOR EXAMINATION: r/o abd wall abscess; Left lower abdominal limited sonography. Abdominal wall ultrasound:; ; History: Area of redness, tenderness and pain in the left periumbilical region; of the anterior abdominal wall for the last 3 days. Question abscess.; ; Findings: Scanning to the left of the umbilicus in the anterior abdominal wall; demonstrates inflamed fat in this region. There is an irregularly marginated; hypoechoic area with hyperechoic internal echogenicity measuring 1.7 x 0.9 x 2.0; cm. No internal Doppler flow or peripheral Doppler flow pattern is seen. Early; abscess must be suspected. No other abnormalities seen.; ; Impression:; ; 2.0 cm irregular hypoechoic area may reflect developing abscess. Inflamed; subcutaneous fat.; ; ; Signed by; Mihir Jaime MD 10/20/2016 05:12 P; Radiology Order: CT ABD & PELVIS WITH CONTRAST Test: CT ABD & PELVIS WITH CONTRAST REASON FOR EXAMINATION: abd abscess, ? extension; CT study abdomen and pelvis with IV contrast:; ; History: Abdominal abscess, question extension.; ; CT contrast dose: 100 ml of Isovue 370 is administered intravenously.; ; CT findings: Preliminary digital primary care coordinator radiograph is unremarkable. The lung; bases show minimal plate-like atelectasis in the left base. No pleural effusion; is seen.; ; The liver and the spleen are normal in size and homogeneous in texture. No; adrenal lesion is seen. Pancreas and gallbladder are unremarkable. Kidneys; enhance symmetrically and are morphologically intact. There is no evidence of; hydronephrosis, cyst or mass. The right renal artery is duplicated but otherwise; unremarkable. Normal caliber aorta. Seminal vesicles, prostate, and urinary; bladder are unremarkable. Small and large intestinal bowel loops are normal. No; abdominal wall defect is seen. The appendix is surgically absent. Bone window; settings show no bony destructive lesion. No abdominal wall defect is seen.; ; There is an area of induration and inflammation and skin thickening located to; the left and caudal to the umbilicus. There is some edema in the umbilicus; itself. No abscess could be visualized by CT. The inflammation appears to be; limited to the subcutaneous fat layer of the left lower quadrant abdominal wall.; The rectus abdominis muscles are normal and symmetric. No hernia, mass,; adenopathy or abnormal fluid collection is seen.; ; Impression:; ; Area of induration seen in the left lower quadrant anterior abdominal wall. This; inflammatory process appears limited by CT criteria to the subcutaneous fat; layer.; ; ; ; ; Unreviewed; Outcome: 17:24 Decision to Hospitalize by Provider. ar2 20:00 Discharge Assessment: patient administered narcotics - yes. Patient was admitted to the [address] or transferred to another facility. The following High Risk Discharge criteria are identified: None. Admitted to Med/Surg accompanied by tech. Condition: good Condition: stable Condition: improved. CT Study completed. Property :Personal belongings accompany Pt. 20:01 Patient left the ED. [facility] Signatures: Dispatcher [employer] EDIA Butch Yang RN RN mlb1 Priya Garcia amHamlet Cameron PA-C PA-C ar2 Adela Montoya RN RN hs1 Angeles Ramey, RN RN jc4 Natalia BhardwajRN RN dsMarly Lou Teresa RN RN ttMario Arevalo gr2 Nav CastroRN RN Butch Garcia,RN RN mb9 Debby Reich JessicaRN RN ja5 Corrections: (The following items were deleted from the chart) 13:03 13:00 PMHx: back fracture [Inactive]; hs1 hs1 MTDD
[2016-10-20 20:10] VITALS: BP 127/78
[2016-10-20] MEDS: NS 1,000 ML IV SCH (20:28)
[2016-10-20] MEDS: PERCOCET 5MG/325MG TAB PO PRN (20:34)
[2016-10-21] VITALS (12 sets, daily range): BP systolic 106–122; BP diastolic 58–76
[2016-10-21] MEDS: PERCOCET 5MG/325MG TAB PO PRN ×6 (01:17→21:30)
[2016-10-21] MEDS: NS 1,000 ML IV SCH ×3 (03:49→19:06)
[2016-10-21] MEDS: CEFTAROLINE FOSAMIL 600 MG in D5W MINI-BAG PLUS 50 ML IV SCH ×2 (03:49→17:42)
[2016-10-21] MEDS ORDERED: CEFTAROLINE FOSAMIL 600 MG in D5W MINI-BAG PLUS 50 ML IV SCH (04:00)
[2016-10-21 06:35] LABS: ANION GAP 8 MEQ/L (8-16); BLOOD UREA NITROGEN 11 MG/DL (7-18); CARBON DIOXIDE LEVEL 27 MEQ/L (21-32); CHLORIDE LEVEL 105 MEQ/L (98-107); CREATININE FOR GFR 0.91 MG/DL (0.70-1.30); GLOMERULAR FILTRATION RATE > 60.0 (>60); GLUCOSE, FASTING 86 MG/DL (70-105); SODIUM LEVEL 140 MEQ/L (136-145)
[2016-10-21 06:49] LABS: BASO % 0.2 % (0.0-1.0); EOS # 0.2 K/mm3 (0.0-0.50); LARGE UNSTAINED CELL # 0.2 K/mm3 (0.0-0.4); LARGE UNSTAINED CELL % 2.1 % (0.0-4.0); LYMPH # 1.7 K/mm3 (1.5-4.5); MEAN CORPUSCULAR HEMOGLOBIN 31.1 pg (27.0-33.0); MEAN CORPUSCULAR HGB CONC 34.7 g/dl (32.0-36.5); MEAN CORPUSCULAR VOLUME 89.7 fl (80.0-96.0); MONO # 0.5 K/mm3 (0.0-0.8); MONO % 6.1 % (0.0-5.0); NEUTROPHILS # 5.7 K/mm3 (1.8-7.7); NEUTROPHILS % 70.6 % (36.0-66.0); PLATELET COUNT, AUTOMATED 243 k/mm3 (150-450); RED CELL DISTRIBUTION WIDTH 11.9 % (11.5-14.5); WHITE BLOOD COUNT 8.1 K/mm3 (4.0-10.0)
--- NOTE | 2016-10-21 13:16 | IPNPDOC ---
Subjective General Date Seen The patient was seen on 10/21/16. Subjective Chief Complaint/HPI The patient is a 30-year-old male admitted with a reason for visit of Abdominal Wall Abscess. Events since last encounter abdominal wall pain unchanged but rednes is a little better, no fever or chills , no chest pain or sob , no nausea or vomiting or diarrhea. Objective Physical Examination General Exam: Positive: Alert, No Acute Distress Eye Exam: Positive: Conjunctiva & lids normal, EOMI, PERRLA, Negative: Sclera icteric ENT Exam: Positive: Atraumatic, Mucous membr. moist/pink, Pharynx Normal Neck Exam: Positive: Supple, Negative: JVD, thyromegaly Chest Exam: Positive: Clear to auscultation, Normal air movement Heart Exam: Positive: Normal S1, Normal S2, Rate Normal, Regular Rhythm, Negative: Murmurs, Rubs Abdomen Exam: Positive: Normal bowel sounds, Other (redness, swelling with fluctuation , tenderness in the infraumbilical region. ), Soft, Negative: Hepatospenomegaly, Tenderness Extremity Exam: Positive: Normal pulses, Negative: Clubbing, Cyanosis, Edema Assessment /Plan Problems Problems: (1) Abdominal wall abscess Status: Acute Problem Text: will continue with ceftaroline TO go to OR today for I and D by Dr contreras Plan/VTE VTE Prophylaxis Ordered?: Yes VS[facility] Signs/I&O Vital Signs Date Time Temp Pulse Resp B/P Pulse Ox O2 Delivery O2 Flow Rate FiO2 10/21/16 10:01 20 Room Air 10/21/16 10:00 98.8 65 118/68 94 I&O- Last 24 Hours up to 6 AM 10/21/16 06:00 Intake Total 990 ml Output Total 375 ml Balance 615 ml Laboratory Data 24H LABS Laboratory Tests 2 10/20/16 15:57: Anion Gap 9, White Blood Count 11.2H, Red Blood Count 5.30, Hemoglobin 16.3, Hematocrit 47.3, Mean Corpuscular Volume 89.2, Mean Corpuscular Hemoglobin 30.8 , Mean Corpuscular Hemoglobin Concent 34.5, Red Cell Distribution Width 11.7, Platelet Count 262, Neutrophils (%) (Auto) 85.2H, Lymphocytes (%) (Auto) 8.8L, Monocytes (%) (Auto) 3.9, Eosinophils (%) (Auto) 0.6, Basophils (%) (Auto) 0.2, Neutrophils # (Auto) 9.5H, Lymphocytes # (Auto) 1.0L, Monocytes # (Auto) 0.4, Eosinophils # (Auto) 0.1, Basophils # (Auto) 0.0, Blood Urea Nitrogen 12, Creatinine 1.05, Sodium Level 135L, Potassium Level 4.0, Chloride Level 100, Carbon Dioxide Level 26, Calcium Level 9.5, Glomerular Filtration Rate > 60.0, Lactic Acid (Sepsis) 1.0, Large Unclassified Cells # 0.1, Large Unclassified Cells % 1.3 10/21/16 05:37: Anion Gap 8, White Blood Count 8.1, Red Blood Count 4.68, Hemoglobin 14.6, Hematocrit 42.0, Mean Corpuscular Volume 89.7, Mean Corpuscular Hemoglobin 31.1 , Mean Corpuscular Hemoglobin Concent 34.7, Red Cell Distribution Width 11.9, Platelet Count 243, Neutrophils (%) (Auto) 70.6H, Lymphocytes (%) (Auto) 19.0L, Monocytes (%) (Auto) 6.1H, Eosinophils (%) (Auto) 2.0, Basophils (%) (Auto) 0.2 , Neutrophils # (Auto) 5.7, Lymphocytes # (Auto) 1.7, Monocytes # (Auto) 0.5, Eosinophils # (Auto) 0.2, Basophils # (Auto) 0.0, Blood Urea Nitrogen 11, Creatinine 0.91, Sodium Level 140, Potassium Level 4.0, Chloride Level 105, Carbon Dioxide Level 27, Calcium Level 9.0, Glomerular Filtration Rate > 60.0, Large Unclassified Cells # 0.2, Large Unclassified Cells % 2.1 CBC/BMP Laboratory Tests 10/20/16 15:57 Calcium Level 9.5, Red Blood Count 5.30, Mean Corpuscular Volume 89.2, Mean Corpuscular Hemoglobin 30.8, Mean Corpuscular Hemoglobin Concent 34.5, Red Cell Distribution Width 11.7, Neutrophils (%) (Auto) 85.2 H, Lymphocytes (%) (Auto) 8.8 L, Monocytes (%) (Auto) 3.9, Eosinophils (%) (Auto) 0.6, Basophils (%) (Auto ) 0.2, Neutrophils # (Auto) 9.5 H, Lymphocytes # (Auto) 1.0 L, Monocytes # (Auto ) 0.4, Eosinophils # (Auto) 0.1, Basophils # (Auto) 0.0 10/21/16 05:37 Calcium Level 9.0, Red Blood Count 4.68, Mean Corpuscular Volume 89.7, Mean Corpuscular Hemoglobin 31.1, Mean Corpuscular Hemoglobin Concent 34.7, Red Cell Distribution Width 11.9, Neutrophils (%) (Auto) 70.6 H, Lymphocytes (%) (Auto) 19.0 L, Monocytes (%) (Auto) 6.1 H, Eosinophils (%) (Auto) 2.0, Basophils (%) ( Auto) 0.2, Neutrophils # (Auto) 5.7, Lymphocytes # (Auto) 1.7, Monocytes # (Auto ) 0.5, Eosinophils # (Auto) 0.2, Basophils # (Auto) 0.0 Microbiology Microbiology 10/20/16 Blood Culture, Received Pending 10/20/16 Blood Culture, Received Pending DANIEL BULLOCK MD Oct 21, 2016 13:16
[2016-10-21] MEDS ORDERED: LIDOCAINE W/EPINEPHRINE 1% 20ML VIAL As Ordered ONE (15:08)
[2016-10-21] MEDS ORDERED: MIDAZOLAM INJ 2 MG/2 ML VIAL (J2250) As Ordered ONE (15:21)
[2016-10-21] MEDS ORDERED: fentaNYL 100 MCG/2 ML INJECTION (J3010) As Ordered ONE (15:21)
[2016-10-21] MEDS ORDERED: PROPOFOL 200 MG/20 ML VIAL As Ordered ONE (15:21)
[2016-10-21] MEDS ORDERED: LIDOCAINE 2% INJ 100 MG/5 ML SDV (FOR ANES.) As Ordered ONE (15:21)
[2016-10-21] MEDS ORDERED: LIDOCAINE W/EPINEPHRINE 1% 20ML VIAL XX ONE (15:39)
[2016-10-21] MEDS ORDERED: LR 1,000 ML IV SCH (16:15)
[2016-10-21] MEDS ORDERED: NS 1,000 ML IV SCH (16:30)
[2016-10-21] MEDS ORDERED: fentaNYL 100 MCG/2 ML INJECTION (J3010) IV PRN (16:30)
--- NOTE | 2016-10-21 18:38 | RO ---
DATE OF PROCEDURE: 10/21/2016 PREOPERATIVE DIAGNOSIS: Left lower abdominal wall abscess. POSTOPERATIVE DIAGNOSIS: Left lower abdominal wall abscess. PROCEDURE: Incision and drainage left abdominal wall abscess. SURGEON: Dr. Ventura De La Cruz COLLEGE SPORTS COACH: None. ESTIMATED BLOOD LOSS: 2 mL. ANESTHESIA: IV sedation with 6 mL of 1% lidocaine with epi local. COMPLICATIONS: None. INDICATIONS FOR PROCEDURE: The patient is a 30-year-old male who has had a left lower quadrant abdominal abscess that has been present since Tuesday. He has failed outpatient treatment with Bactrim. He came into the emergency room (ER) and was admitted yesterday for evaluation. I was called this morning to see about drainage. After physical exam, recommendation was to proceed with drainage. Risks and benefits of the procedure not limited to but including bleeding, infection and need for further surgery were discussed in detail with the patient. Informed consent was obtained, procedure was planned. DESCRIPTION OF PROCEDURE: The patient brought back to operating room #1 and after sufficient sedation, the abdomen was sterilely prepped and draped with Betadine. Next, a 1-1/2 cm incision was made using a #15 blade scalpel. Following that, the purulent drainage was all removed using suction. Next, a hemostat was placed inside to break up loculations. Once this was completed, it was irrigated with saline. It was then packed with quarter inch iodoform packing and covered with a 4x4, thus ending procedure. The patient was awakened from anesthesia and sent to post-anesthesia care unit (PACU) in stable condition. STEVIE
--- NOTE | 2016-10-21 21:45 | CR ---
DATE OF CONSULTATION: 10/21/2016 REASON FOR CONSULTATION: Abdominal abscess. HISTORY OF PRESENT ILLNESS: The patient is a 30-year-old male who had a history of an abscess in his left lower abdomen which started last Tuesday. He went to the emergency room (ER) and was started on Bactrim. However, he has had increasing pain, swelling and redness to the area since the weekend. He went to the ER last evening. He was admitted through the hospitalist service. He has had ultrasound and CAT scans done and then surgery was consulted to evaluate. The patient has never had any history of fevers. He has tried warm compresses and has been taking his antibiotics appropriately, but this has not opened up and actively started draining at all on its own. No history of recent trauma to the area. PAST MEDICAL HISTORY: Negative. PAST SURGICAL HISTORY: Appendectomy. Right knee surgery. SOCIAL HISTORY: Denies drug, alcohol, tobacco abuse. FAMILY HISTORY: Noncontributory. ALLERGIES: None. HOME MEDICATIONS: Please see medical record (med rec). REVIEW OF SYSTEMS: Pertinent positives and negatives as stated in the history of the present illness. PHYSICAL EXAM: General: Alert and oriented times three, in no acute distress. Vital signs: Temperature 97.7, pulse 65, respirations 16, blood pressure 107/72 , pulse oximetry 96% on room air. HEENT: Pupils equal, round and reactive to light and accommodation. Heart: S1, S2, regular rate and rhythm. Lungs: Clear to auscultation bilaterally. Abdomen: Soft, nontender, nondistended. Bowel sounds positive. There is a left lower quadrant abscess approximately 10 cm in circumference that is erythematous and indurated. The center of it is very fluctuant with thinning of his skin. No active drainage yet. Extremities: No clubbing, cyanosis or edema. LABORATORY DATA: White count is 8.1, hemoglobin 14.6, platelets 243, creatinine 0.91. ASSESSMENT AND PLAN: The patient is a 30-year-old male with a left lower quadrant superficial abdominal wall abscess. Recommendation is to take him to the operating room for incision and drainage. After surgery, the wound will be packed. Nurses can show him how to change the packing in the morning, and he can be discharged home with oral antibiotics. Packing will remain in place for 7 days after which he can take it out, leave it out and the wound will continue to close up on its own. No reason for followup in office. If he has any problems or questions, he can call me as needed. STEVIE
[2016-10-22] MEDS: PERCOCET 5MG/325MG TAB PO PRN ×3 (01:47→10:45)
[2016-10-22] MEDS: NS 1,000 ML IV SCH ×2 (01:47→10:44)
[2016-10-22 02:00] VITALS: BP 110/60
[2016-10-22] MEDS: CEFTAROLINE FOSAMIL 600 MG in D5W MINI-BAG PLUS 50 ML IV SCH (03:17)
[2016-10-22 06:00] VITALS: BP 110/66
[2016-10-22 07:05] LABS: BASO % 0.4 % (0.0-1.0); EOS # 0.1 K/mm3 (0.0-0.50); EOS % 2.6 % (0.0-3.0); LARGE UNSTAINED CELL # 0.1 K/mm3 (0.0-0.4); LARGE UNSTAINED CELL % 2.4 % (0.0-4.0); LYMPH # 1.5 K/mm3 (1.5-4.5); LYMPH % 28.4 % (24.0-44.0); MEAN CORPUSCULAR HEMOGLOBIN 30.3 pg (27.0-33.0); MEAN CORPUSCULAR HGB CONC 33.2 g/dl (32.0-36.5); MEAN CORPUSCULAR VOLUME 91.4 fl (80.0-96.0); MONO # 0.3 K/mm3 (0.0-0.8); NEUTROPHILS # 3.1 K/mm3 (1.8-7.7); NEUTROPHILS % 60.1 % (36.0-66.0); PLATELET COUNT, AUTOMATED 276 k/mm3 (150-450); RED CELL DISTRIBUTION WIDTH 11.7 % (11.5-14.5); WHITE BLOOD COUNT 5.1 K/mm3 (4.0-10.0)
[2016-10-22 07:24] LABS: ANION GAP 8 MEQ/L (8-16); BLOOD UREA NITROGEN 12 MG/DL (7-18); CALCIUM LEVEL 8.5 MG/DL (8.5-10.1); CARBON DIOXIDE LEVEL 28 MEQ/L (21-32); CHLORIDE LEVEL 108 MEQ/L (98-107); CREATININE FOR GFR 0.91 MG/DL (0.70-1.30); GLOMERULAR FILTRATION RATE > 60.0 (>60); GLUCOSE, FASTING 83 MG/DL (70-105); POTASSIUM SERUM 3.9 MEQ/L (3.5-5.1); SODIUM LEVEL 144 MEQ/L (136-145)
[2016-10-22] MEDS ORDERED: CLEO300C2 PO (10:46)
[2016-10-22] MEDS ORDERED: PERCOCET PO (10:46)
--- NOTE | 2016-10-22 21:02 | EDDOCDS ---
Nurse's Notes [facility] Name: Thomas Starr Age: 30 yrs Sex: Male : 1985 Arrival Date: 10/20/2016 Time: 12:55 Bed I4 / M4 Private MD: [facility] Diagnosis: Cutaneous abscess of abdominal wall;Cellulitis of abdominal wall Presentation: 10/20 12:59 Presenting complaint: Patient states: cellulitis is worse on stomach and is here for hs1 recheck. Patient states feeling worse and having fever and chills. Risk factors: the patient reports not having a history of previous torsion. Adult Sepsis Screening: The patient does not have new or worsening altered mentation. Patient's respiratory rate is less than 22. Systolic blood pressure is greater than 100. Patient has a qSOFA score of 0- Negative Sepsis Screen. Suicide/Homicide risk assessment- the patient denies having any suicidal and/or homicidal ideations and does not present with any other emotional, behavioral or mental health complaints. Status: Patient is not a director of residential services or dependent. Transition of care: patient was not received from another setting of care. 12:59 Acuity: MISSAEL Level 3 hs1 12:59 Method Of Arrival: Walkin/Carried/Asstd hs1 Triage Assessment: 13:03 General: Appears uncomfortable, Behavior is agitated, anxious, cooperative. Pain: hs1 Location: abdomen Pain currently is 10 out of 10 on a pain scale. HIV screening NA for this visit Offered previously. Neurological: No deficits noted. Respiratory: Airway is patent Respiratory effort is even, unlabored, Respiratory pattern is regular, symmetrical. GI: Denies nausea. Derm: Skin is red, Skin temperature is hot on right lower quadrant and left lower quadrant. Historical: - Allergies: No known drug Allergies; - Home Meds: 1. naproxen 500 mg Oral tab 1 tab stopped taking 3 days ago 2. Bactrim DS 800-160 mg Oral tab 1 tab every 12 hours (Last dose: 10/20/2016 00:02) 3. cyclobenzaprine 5 mg Oral tab 1 tab 3 times per day stopped taking 3 days ago - PMHx: none; - PSHx: Appendectomy; right knee; - Social history: Smoking status: Patient states was never smoker of tobacco. No barriers to communication noted, The patient speaks fluent Czech. - Family history: Not pertinent. - : The pt / caregiver states he / she is not on anticoagulants. Home medication list is obtained from the patient. - Exposure Risk Screening:: None identified. Screenin:54 Screening information is obtained from the patient. Fall risk: No risks identified. jc4 Assistance ADL's: requires no assistance with activities of daily living. Abuse/DV Screen: The patient / caregiver reports he/she is: not in a situation that causes fear, pain or injury. Nutritional screening: No deficits noted. Advance Directives: Currently, there is no health care proxy. There is no active DNR order. There is no living will. There is no Power of Inset Cutter. home support is adequate. Assessment: 16:05 General: Appears in no apparent distress, Behavior is cooperative, pleasant. jc4 Neurological: Level of Consciousness is awake, alert, Oriented to person, place, time. Respiratory: Airway is patent Respiratory effort is even, unlabored, Respiratory pattern is regular, symmetrical. GI: Abdomen is non- distended other redness noted in left lower quadrant, small open area noted Bowel sounds present X 4 quads. Abd is tender to palpation in left lower quadrant. 16:17 General: abdominal wall cellulitis marked with marker and measured 30 cm length and 11 dsf cm height . 17:23 Adult Sepsis Screening: The patient does not have new or worsening altered mentation. dsf Patient's respiratory rate is less than 22. Systolic blood pressure is greater than 100. Patient has a qSOFA score of 0- Negative Sepsis Screen. General: Appears in no apparent distress, Behavior is appropriate for age, cooperative. Pain: Location: abdomen Pain currently is 7 out of 10 on a pain scale. Neurological: Level of Consciousness is awake, alert. Cardiovascular: Capillary refill < 3 seconds. Respiratory: Airway is patent Respiratory effort is even, unlabored, Respiratory pattern is regular, symmetrical. Derm: large reddened area to lower abdomen warm to touch and tender. 18:49 General: Pt returned from CT. Pt states that pain is not improved since Morphine jc4 administered. 19:06 General: Appears in no apparent distress, Behavior is appropriate for age, cooperative, jmb Patient sitting in room eating jreck's subs with family at bedside. NO voiced complaints at this time. . Neurological: Level of Consciousness is awake, alert, obeys commands, Oriented to person, place, time, Speech is normal, Facial symmetry appears normal, Facial symmetry: tongue is midline. Cardiovascular: Capillary refill < 3 seconds Heart tones present Pulses are all present. Rhythm is regular. Respiratory: Airway is patent Respiratory effort is even, unlabored, Respiratory pattern is regular, symmetrical, Breath sounds are clear bilaterally. GI: Abdomen is non- distended. Derm: Skin is pink, warm & dry. Musculoskeletal: Range of motion intact in all extremities. Vital Signs: 12:57 BP 154 / 92; Pulse 106; Resp 18 S; Temp 97.6(O); Pulse Ox 97% on R/A; Weight 95.25 kg gr2 (R); Height 6 ft. 0 in. (182.88 cm) (R); Pain 10/10; 17:23 BP 142 / 88; Pulse 88; Resp 20; Temp 99.1(O); Pulse Ox 96% on R/A; Pain 7/10; dsf 17:31 Pain 7/10; ja5 19:13 BP 151 / 82; Pulse 84; Resp 18; Temp 99.9; Pulse Ox 97% ; Pain 10/10; ajs 12:57 Body Mass Index 28.48 (95.25 kg, 182.88 cm) gr2 Vitals: 12:57 Log In Time: October 20, 2016 at 12:57. gr2 ED Course: 12:56 Patient visited by Mario Wang. gr2 12:56 [facility] is Private Physician. gr2 12:56 Patient moved to Waiting gr2 12:58 Patient visited by Mario Wang. gr2 12:58 Patient moved to Pre RCE gr2 13:00 Triage Initiated hs1 15:11 Patient moved to Triage 3 ttb 15:29 Hamlet Mccartney PA-C is PHCP. ar2 15:29 Blanco Jacobo MD is Attending Physician. ar2 15:29 Patient visited by Hamlet Mccartney PA-C. ar2 15:45 Angeles Ramey, MARISA is Primary Nurse. mlb1 15:45 Dai Palma,MARISA is Primary Nurse. mlb1 15:45 Patient moved to I4 / M4 mlb1 16:03 Patient visited by Angeles Ramey RN. jc4 16:03 BLOOD CULTURES Sent. jc4 16:04 Lactic Acid (Sher tube on ice) Sent. jc4 16:04 -Blood Culture Sent. jc4 16:04 MED Profile Sent. jc4 16:04 CBC with Diff Sent. jc4 16:04 Inserted saline lock: 20 gauge in right antecubital area The patient tolerated the jc4 procedure well. 16:05 The patient / caregiver is instructed regarding the plan of care and ED course. jc4 16:06 Patient moved to Ultrasound am10 16:15 Patient moved to I4 / M4 am10 16:18 Patient visited by Natalia Bhardwaj RN. dsf 16:45 [facility] Payment Agreement was scanned into [employer] and attached to record. gjb 17:23 Edinson Ragsdale is Hospitalizing Provider. ar2 17:23 ABD US: Limited Returned. EDMS 17:25 Patient visited by Natalia Bhardwaj RN. dsf 19:09 Patient visited by Nav Castro RN. jmb 19:13 Patient visited by Marly Contreras. ajs 19:17 CT ABD & PELVIS WITH CONTRAST Returned. EDMS 20:00 No procedures done that require assistance. mb9 02 10:17 T-Sheet-- Draft Copy was scanned into [employer] and attached to record. gb Administered Medications: 10/20 16:17 Drug: NS 0.9% 1000 ml [sodium chloride 0.9 % injection solution] Route: IV; Rate: dsf bolus; Site: right antecubital; 17:31 Follow up: IV Status: Completed infusion [facility] 16:25 Drug: Ceftaroline Fosamil 600 mg [ceftaroline fosamil 600 mg intravenous solution] [facility] Route: IV; Rate: calculated rate; Infused Over: 30 mins; Site: right antecubital; 17:31 Follow up: IV Status: Completed infusion [facility] 16:35 Drug: morphine 4 mg [morphine 4 mg/mL intravenous cartridge (1 mL)] Route: IVP; Site: ja5 right antecubital; 17:31 Follow up: Pain 7/10 Adult [facility] 19:40 Drug: morphine 2 mg [morphine 2 mg/mL intravenous cartridge (1 mL)] Route: IVP; Site: [facility] right antecubital; Order Results: Lab Order: CBC with Diff; SPEC'M 10/20/16 15:57 Test: WHITE BLOOD COUNT; Value: 11.2; Range: 4.0-10.0; Abnormal: Above high normal; Units: K/mm3; Status: F Test: RED BLOOD COUNT; Value: 5.30; Range: 4.30-6.10; Units: M/mm3; Status: F Test: HEMOGLOBIN; Value: 16.3; Range: 14.0-18.0; Units: g/dl; Status: F Test: HEMATOCRIT; Value: 47.3; Range: 42.0-52.0; Units: %; Status: F Test: MEAN CORPUSCULAR VOLUME; Value: 89.2; Range: 80.0-96.0; Units: fl; Status: F Test: MEAN CORPUSCULAR HEMOGLOBIN; Value: 30.8; Range: 27.0-33.0; Units: pg; Status: F Test: MEAN CORPUSCULAR HGB CONC; Value: 34.5; Range: 32.0-36.5; Units: g/dl; Status: F Test: RED CELL DISTRIBUTION WIDTH; Value: 11.7; Range: 11.5-14.5; Units: %; Status: F Test: PLATELET COUNT, AUTOMATED; Value: 262; Range: 150-450; Units: k/mm3; Status: F Test: NEUTROPHILS %; Value: 85.2; Range: 36.0-66.0; Abnormal: Above high normal; Units: %; Status: F Test: LYMPH %; Value: 8.8; Range: 24.0-44.0; Abnormal: Below low normal; Units: %; Status: F Test: MONO %; Value: 3.9; Range: 0.0-5.0; Units: %; Status: F Test: EOS %; Value: 0.6; Range: 0.0-3.0; Units: %; Status: F Test: BASO %; Value: 0.2; Range: 0.0-1.0; Units: %; Status: F Test: LARGE UNSTAINED CELL %; Value: 1.3; Range: 0.0-4.0; Units: %; Status: F Test: NEUTROPHILS #; Value: 9.5; Range: 1.8-7.7; Abnormal: Above high normal; Units: K/mm3; Status: F Test: LYMPH #; Value: 1.0; Range: 1.5-4.5; Abnormal: Below low normal; Units: K/mm3; Status: F Test: MONO #; Value: 0.4; Range: 0.0-0.8; Units: K/mm3; Status: F Test: EOS #; Value: 0.1; Range: 0.0-0.50; Units: K/mm3; Status: F Test: BASO #; Value: 0.0; Range: 0.0-0.2; Units: K/mm3; Status: F Test: LARGE UNSTAINED CELL #; Value: 0.1; Range: 0.0-0.4; Units: K/mm3; Status: F Lab Order: [employer] Profile; [facility]10/[facility]16 15:57 Test: GLUCOSE, FASTING; Value: 83; Range: 70-105; Units: MG/DL; Status: F Test: BLOOD UREA NITROGEN; Value: 12; Range: 7-18; Units: MG/DL; Status: F Test: CREATININE FOR GFR; Value: 1.05; Range: 0.70-1.30; Units: MG/DL; Status: F Test: GLOMERULAR FILTRATION RATE; Value: > 60.0; Range: >60; Status: F Test: SODIUM LEVEL; Value: 135; Range: 136-145; Abnormal: Below low normal; Units: MEQ/L; Status: F Test: POTASSIUM SERUM; Value: 4.0; Range: 3.5-5.1; Units: MEQ/L; Status: F Test: CHLORIDE LEVEL; Value: 100; Range: 98-107; Units: MEQ/L; Status: F Test: CARBON DIOXIDE LEVEL; Value: 26; Range: 21-32; Units: MEQ/L; Status: F Test: ANION GAP; Value: 9; Range: 8-16; Units: MEQ/L; Status: F Test: CALCIUM LEVEL; Value: 9.5; Range: 8.5-10.1; Units: MG/DL; Status: F Test Note: ; Units are mL/min/1.73 m2 Chronic Kidney Disease Staging per NKF: Stage I & II GFR >=60 Normal to Mildly Decreased Stage III GFR 30-59 Moderately Decreased Stage IV GFR 15-29 Severely Decreased Stage V GFR <15 Very Little GFR Left ESRD GFR <15 on [facility]EE [employer]ER Lab Order: Lactic Acid (Sher tube on ice); SPEC'M 10/20/16 15:57 Test: LACTIC ACID SEPSIS PROTOCOL; Value: 1.0; Range: 0.4-2.0; Units: MMOL/L; Status: F Radiology Order: ABD US: Limited Test: ABD US: Limited REASON FOR EXAMINATION: r/o abd wall abscess; Left lower abdominal limited sonography. Abdominal wall ultrasound:; ; History: Area of redness, tenderness and pain in the left periumbilical region; of the anterior abdominal wall for the last 3 days. Question abscess.; ; Findings: Scanning to the left of the umbilicus in the anterior abdominal wall; demonstrates inflamed fat in this region. There is an irregularly marginated; hypoechoic area with hyperechoic internal echogenicity measuring 1.7 x 0.9 x 2.0; cm. No internal Doppler flow or peripheral Doppler flow pattern is seen. Early; abscess must be suspected. No other abnormalities seen.; ; Impression:; ; 2.0 cm irregular hypoechoic area may reflect developing abscess. Inflamed; subcutaneous fat.; ; ; Signed by; Mihir Jaime MD 10/20/2016 05:12 P; Radiology Order: CT ABD & PELVIS WITH CONTRAST Test: CT ABD & PELVIS WITH CONTRAST REASON FOR EXAMINATION: abd abscess, ? extension; CT study abdomen and pelvis with IV contrast:; ; History: Abdominal abscess, question extension.; ; CT contrast dose: 100 ml of Isovue 370 is administered intravenously.; ; CT findings: Preliminary digital program evaluator radiograph is unremarkable. The lung; bases show minimal plate-like atelectasis in the left base. No pleural effusion; is seen.; ; The liver and the spleen are normal in size and homogeneous in texture. No; adrenal lesion is seen. Pancreas and gallbladder are unremarkable. Kidneys; enhance symmetrically and are morphologically intact. There is no evidence of; hydronephrosis, cyst or mass. The right renal artery is duplicated but otherwise; unremarkable. Normal caliber aorta. Seminal vesicles, prostate, and urinary; bladder are unremarkable. Small and large intestinal bowel loops are normal. No; abdominal wall defect is seen. The appendix is surgically absent. Bone window; settings show no bony destructive lesion. No abdominal wall defect is seen.; ; There is an area of induration and inflammation and skin thickening located to; the left and caudal to the umbilicus. There is some edema in the umbilicus; itself. No abscess could be visualized by CT. The inflammation appears to be; limited to the subcutaneous fat layer of the left lower quadrant abdominal wall.; The rectus abdominis muscles are normal and symmetric. No hernia, mass,; adenopathy or abnormal fluid collection is seen.; ; Impression:; ; Area of induration seen in the left lower quadrant anterior abdominal wall. This; inflammatory process appears limited by CT criteria to the subcutaneous fat; layer.; ; ; ; ; Unreviewed; Outcome: 17:24 Decision to Hospitalize by Provider. ar2 20:00 Discharge Assessment: patient administered narcotics - yes. Patient was admitted to the [address] or transferred to another facility. The following High Risk Discharge criteria are identified: None. Admitted to Med/Surg accompanied by tech. Condition: good Condition: stable Condition: improved. CT Study completed. Property :Personal belongings accompany Pt. 20:01 Patient left the ED. [facility] Signatures: Dispatcher [employer] EDMS Lissa Doss, Reg Reg Butch Burns, RN RN mlb1 Priya Garcia amHamlet Cameron PA-C PA-C ar2 Adela Montoya RN RN hs1 Angeles Ramey RN RN jc4 Natalia Bhardwaj,RN Marly Castanon Teresa, RN RN ttb Mario Wang gr2 Nav CastroRN RN Btuch GarciaRN RN mb9 Debby Reich JessicaRN RN ja5 Corrections: (The following items were deleted from the chart) 13:03 13:00 PMHx: back fracture [Inactive]; hs1 hs1 Chart Complete MTDD
--- NOTE | 2016-10-22 21:02 | EDDOCDS ---
Physician Documentation [facility] Name: Thomas Starr Age: 30 yrs Sex: Male : 1985 Arrival Date: 10/20/2016 Time: 12:55 Bed I4 / M4 Private MD: [facility] Disposition: 10/20/16 17:24 Hospitalization ordered by Edinson Ragsdale for Inpatient Admission. Preliminary diagnosis are Cutaneous abscess of abdominal wall, Cellulitis of abdominal wall. - Bed requested for 4 [place]. - Status is Inpatient Admission. mb9 - Condition is Stable. - Problem is new. - Symptoms are unchanged. Historical: - Allergies: No known drug Allergies; - Home Meds: 1. naproxen 500 mg Oral tab 1 tab stopped taking 3 days ago 2. Bactrim DS 800-160 mg Oral tab 1 tab every 12 hours (Last dose: 10/20/2016 00:02) 3. cyclobenzaprine 5 mg Oral tab 1 tab 3 times per day stopped taking 3 days ago - PMHx: none; - PSHx: Appendectomy; right knee; - Social history: Smoking status: Patient states was never smoker of tobacco. No barriers to communication noted, The patient speaks fluent Khmer. - Family history: Not pertinent. - : The pt / caregiver states he / she is not on anticoagulants. Home medication list is obtained from the patient. - Exposure Risk Screening:: None identified. Vital Signs: 10/20 12:57 BP 154 / 92; Pulse 106; Resp 18 S; Temp 97.6(O); Pulse Ox 97% on R/A; Weight 95.25 kg / gr2 209.99 lbs (R); Height 6 ft. 0 in. (182.88 cm) (R); Pain 10/10; 17:23 BP 142 / 88; Pulse 88; Resp 20; Temp 99.1(O); Pulse Ox 96% on R/A; Pain 7/10; dsf 17:31 Pain 7/10; ja5 19:13 BP 151 / 82; Pulse 84; Resp 18; Temp 99.9; Pulse Ox 97% ; Pain 10/10; ajs 12:57 Body Mass Index 28.48 (95.25 kg, 182.88 cm) gr2 MDM: 15:44 IV Saline Lock ordered. ar2 15:44 -Blood Culture (Adults Only), peripheral from different site, or from device/port/PICC ar2 etc. if present ordered. 15:44 Ceftaroline Fosamil 600 mg IV at calculated rate once over 30 mins; reconstitute with ar2 20mL NS or SW, then dilulte in 50mL of NS, D5W or LR ordered. 15:44 NS 0.9% 1000 ml IV at bolus once ordered. ar2 15:45 CBC with Diff Ordered. EDMS 15:45 MED Profile Ordered. EDMS 15:45 Lactic Acid (Sher tube on ice) Ordered. EDMS 15:46 -Blood Culture Ordered. EDMS 15:46 ABD US: Limited Ordered. EDMS 15:54 -Blood Culture (Adults Only), peripheral from different site, or from device/port/PICC ct3 etc. if present complete. 15:58 BLOOD CULTURES Ordered. EDMS 16:27 morphine 4 mg IVP once ordered. ar2 16:42 Financial registration complete. gjb 16:45 [facility] Payment Agreement was scanned into [employer] and attached to record. gjb 17:10 CBC with Diff Reviewed. ar2 17:10 MED Profile Reviewed. ar2 17:10 Lactic Acid (Sher tube on ice) Reviewed. ar2 17:21 BED REQUEST+ADM ordered. EDMS 18:33 CT ABD & PELVIS WITH CONTRAST Ordered. EDMS 18:42 Admission / Observation Status ordered. EDMS 18:42 REGULAR DIET ordered. EDMS 19:38 morphine 2 mg IVP once ordered. peterb 10/21 10:17 T-Sheet-- Draft Copy was scanned into [employer] and attached to record. gb Administered Medications: 10/20 16:17 Drug: NS 0.9% 1000 ml [sodium chloride 0.9 % injection solution] Route: IV; Rate: dsf bolus; Site: right antecubital; 17:31 Follow up: IV Status: Completed infusion 5 16:25 Drug: Ceftaroline Fosamil 600 mg [ceftaroline fosamil 600 mg intravenous solution] ja5 Route: IV; Rate: calculated rate; Infused Over: 30 mins; Site: right antecubital; 17:31 Follow up: IV Status: Completed infusion ja5 16:35 Drug: morphine 4 mg [morphine 4 mg/mL intravenous cartridge (1 mL)] Route: IVP; Site: ja5 right antecubital; 17:31 Follow up: Pain 03/21 Adult ja5 19:40 Drug: morphine 2 mg [morphine 2 mg/mL intravenous cartridge (1 mL)] Route: IVP; Site: [facility] right antecubital; Signatures: Dispatcher [employer] EDMS Lissa Doss, Reg Reg gb Hamlet Mccartney, CHRISSY PAFina ar2 Adela Montoya RN RN hs1 Angeles Ramey RN RN jc4 Chanel Vazquez, ASSOCIATE MERCHANDISER ASSOCIATE MERCHANDISER ct3 Nav Castro RN RN Butch GarciaRN RN mb9 Debby Reich Steven, RN RN sa Fuller, Desiree RN dsf Anderson, Jessica RN ja5 The chart was reviewed and I authenticate all verbal orders and agree with the evaluation and treatment provided.Corrections: (The following items were deleted from the chart) 13:03 13:00 PMHx: back fracture [Inactive]; hs1 hs1 Attachments: 16:45 [facility] Payment Agreement [facility] 10/21 10:17 T-Sheet-- Draft Copy Chart Complete MTDD
--- NOTE | 2016-10-22 21:02 | EDDOCDS ---
Physician Documentation [facility] Name: Thomas Starr Age: 30 yrs Sex: Male : 1985 Arrival Date: 10/20/2016 Time: 12:55 Bed I4 / M4 Private MD: [facility] Disposition: 10/20/16 17:24 Hospitalization ordered by Edinson Ragsdale for Inpatient Admission. Preliminary diagnosis are Cutaneous abscess of abdominal wall, Cellulitis of abdominal wall. - Bed requested for 4 [place]. - Status is Inpatient Admission. mb9 - Condition is Stable. - Problem is new. - Symptoms are unchanged. Historical: - Allergies: No known drug Allergies; - Home Meds: 1. naproxen 500 mg Oral tab 1 tab stopped taking 3 days ago 2. Bactrim DS 800-160 mg Oral tab 1 tab every 12 hours (Last dose: 10/20/2016 00:02) 3. cyclobenzaprine 5 mg Oral tab 1 tab 3 times per day stopped taking 3 days ago - PMHx: none; - PSHx: Appendectomy; right knee; - Social history: Smoking status: Patient states was never smoker of tobacco. No barriers to communication noted, The patient speaks fluent Mongolian. - Family history: Not pertinent. - : The pt / caregiver states he / she is not on anticoagulants. Home medication list is obtained from the patient. - Exposure Risk Screening:: None identified. Vital Signs: 10/20 12:57 BP 154 / 92; Pulse 106; Resp 18 S; Temp 97.6(O); Pulse Ox 97% on R/A; Weight 95.25 kg / gr2 209.99 lbs (R); Height 6 ft. 0 in. (182.88 cm) (R); Pain 10/10; 17:23 BP 142 / 88; Pulse 88; Resp 20; Temp 99.1(O); Pulse Ox 96% on R/A; Pain 7/10; dsf 17:31 Pain 7/10; ja5 19:13 BP 151 / 82; Pulse 84; Resp 18; Temp 99.9; Pulse Ox 97% ; Pain 10/10; ajs 12:57 Body Mass Index 28.48 (95.25 kg, 182.88 cm) gr2 MDM: 15:44 IV Saline Lock ordered. ar2 15:44 -Blood Culture (Adults Only), peripheral from different site, or from device/port/PICC ar2 etc. if present ordered. 15:44 Ceftaroline Fosamil 600 mg IV at calculated rate once over 30 mins; reconstitute with ar2 20mL NS or SW, then dilulte in 50mL of NS, D5W or LR ordered. 15:44 NS 0.9% 1000 ml IV at bolus once ordered. ar2 15:45 CBC with Diff Ordered. EDMS 15:45 MED Profile Ordered. EDMS 15:45 Lactic Acid (Sher tube on ice) Ordered. EDMS 15:46 -Blood Culture Ordered. EDMS 15:46 ABD US: Limited Ordered. EDMS 15:54 -Blood Culture (Adults Only), peripheral from different site, or from device/port/PICC ct3 etc. if present complete. 15:58 BLOOD CULTURES Ordered. EDMS 16:27 morphine 4 mg IVP once ordered. ar2 16:42 Financial registration complete. gjb 16:45 [facility] Payment Agreement was scanned into [employer] and attached to record. gjb 17:10 CBC with Diff Reviewed. ar2 17:10 MED Profile Reviewed. ar2 17:10 Lactic Acid (Sher tube on ice) Reviewed. ar2 17:21 BED REQUEST+ADM ordered. EDMS 18:33 CT ABD & PELVIS WITH CONTRAST Ordered. EDMS 18:42 Admission / Observation Status ordered. EDMS 18:42 REGULAR DIET ordered. EDMS 19:38 morphine 2 mg IVP once ordered. peterb 10/21 10:17 T-Sheet-- Draft Copy was scanned into [employer] and attached to record. gb Administered Medications: 10/20 16:17 Drug: NS 0.9% 1000 ml [sodium chloride 0.9 % injection solution] Route: IV; Rate: dsf bolus; Site: right antecubital; 17:31 Follow up: IV Status: Completed infusion 5 16:25 Drug: Ceftaroline Fosamil 600 mg [ceftaroline fosamil 600 mg intravenous solution] ja5 Route: IV; Rate: calculated rate; Infused Over: 30 mins; Site: right antecubital; 17:31 Follow up: IV Status: Completed infusion ja5 16:35 Drug: morphine 4 mg [morphine 4 mg/mL intravenous cartridge (1 mL)] Route: IVP; Site: ja5 right antecubital; 17:31 Follow up: Pain 03/21 Adult ja5 19:40 Drug: morphine 2 mg [morphine 2 mg/mL intravenous cartridge (1 mL)] Route: IVP; Site: [facility] right antecubital; Signatures: Dispatcher [employer] EDMS Lissa Doss, Reg Reg gb Hamlet Mccartney, CHRISSY PAFina ar2 Adela Montoya RN RN hs1 Angeles Ramey RN RN jc4 Chanel Vazquez, DISEASE MANAGEMENT NURSE DISEASE MANAGEMENT NURSE ct3 Nav Castro RN RN Butch GraciaRN RN mb9 Debby Reich Steven, RN RN sa Fuller, Desiree RN dsf Anderson, Jessica RN ja5 The chart was reviewed and I authenticate all verbal orders and agree with the evaluation and treatment provided.Corrections: (The following items were deleted from the chart) 13:03 13:00 PMHx: back fracture [Inactive]; hs1 hs1 Attachments: 16:45 [facility] Payment Agreement [facility] 10/21 10:17 T-Sheet-- Draft Copy Chart Complete MTDD
--- NOTE | 2016-10-24 11:08 | DSES ---
DATE OF ADMISSION: 10/20/2016 DATE OF DISCHARGE: 10/22/2016 PRIMARY CARE PROVIDER: Nell Braxton DO at the resident clinic. DISCHARGE DIAGNOSIS: Abdominal wall abscess status post incision and drainage. DISCHARGE MEDICATIONS: - clindamycin 200 mg four times a day - oxycodone/acetaminophen 5/325 one tablet every 6 hours as needed, pain - naproxen 500 mg by mouth twice a day as needed - cyclobenzaprine 5 mg by mouth three times a day as needed, spasms HOSPITAL COURSE: This is a 30-year-old, healthy male who presented to the hospital with 1 week history of abdominal wall, which gradually worse with increase in size, redness, swelling, and pain. Patient was seen initially in the emergency department (ED) and given Bactrim, which he had taken for 4 or 5 days without any improvement and so came back to the emergency room. In the ED, he was found to have a collection and an abscess in abdomen and so was admitted. Patient underwent incision and drainage by Dr. De La Cruz from surgery, followed by packing with iodoform. Patient was treated with intravenous (IV) antibiotics for 2 days and then was switched to oral clindamycin on discharge. On the day of discharge, patient was oxygen baseline. His symptoms were controlled and stable vital signs. PHYSICAL EXAMINATION: Vital signs: Temperature 97.5, pulse 63, respiratory rate 16, blood pressure 110/66, pulse oximetry 97% on room air. General: Patient awake, alert, oriented times three, lying down in bed, in no acute distress. HEENT: Normocephalic, atraumatic. Moist mucous membranes. Anicteric eyes. Chest: Clear to auscultation. Cardiovascular: S1, S2, regular. No rub, murmur or gallop. Abdomen: Soft. There is localized tenderness and swelling at the site of incision and drainage, otherwise nontender. Bowel sounds are normal. Extremities: No edema. LABORATORY DATA: WBC 5.1, hemoglobin 14.3, platelets 276. Sodium 144, potassium 3.9, chloride 108, bicarbonate 28, BUN 12, creatinine 0.91, glucose 83, calcium 8.5. Blood cultures are negative after 48 hours. DISPOSITION: Patient is discharged home in a stable condition. DISCHARGE INSTRUCTIONS: Patient to followup with primary care provider in 1 week. Patient to call Dr. De La Cruz in case of any issues with his abscess, drainage site. Advised light duty and to refrain from lifting more than 15 pounds for the next 7 days. Regular diet.
== END 2016-10-22 12:15 | disposition home or self-care (01) | DRG 364 ==
LOC: M ED 12:55 → M ED INP 18:32 → M MSPAV 20:08
PROVIDERS: ADMIT Internal Medicine; ATTEND Internal Medicine Nephrology
PROC: 0W9F0ZZ Drainage of Abdominal Wall, Open Approach (ICD-10-PCS; principal; 2016-10-21 15:30)
DX: L02.211 Cutaneous abscess of abdominal wall (principal); Z80.0 Family history of malignant neoplasm of digestive organs; Z80.7 Family history of other malignant neoplasms of lymphoid, hematopoietic and related tissues

== ENCOUNTER → 2016-12-07 | Outpatient (CLI) | payer BC ==
[~2016-12-07] MED LIST: BACT800T5 PO; CLEO300C2 PO; CYCL5TA PO; NAPR500T2 PO; PERCOCET PO
--- NOTE | 2016-12-07 11:23 | REP ---
CT CERVICAL SPINE WITHOUT CONTRAST: HISTORY: Cervicalgia. There is no acute fracture or subluxation. There is an old fracture of the T1 vertebral body with minimal height loss. There is no disc bulge or herniation. The spinal canal and the neural foramina are patent. The intervertebral discs are normal in height. 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 IMPRESSION: Old T1 compression fracture with minimal height loss. Signed by Bigg Bear MD 12/07/2016 11:24 A
== END ==
LOC: M RAD 10:17
PROVIDERS: ATTEND Internal Medicine
DX: M54.2 Cervicalgia (principal); Z87.312 Personal history of (healed) stress fracture

== ENCOUNTER 2017-01-11 09:42 | Emergency (ER) | payer BC, OTHER ==
[~2017-01-11] VITALS: Ht 182.9 cm; Wt 95.7 kg
[2017-01-11 09:43] VITALS: BP 136/87
[2017-01-11] MEDS ORDERED: TYLE325T5 PO (09:50)
[2017-01-11] MEDS ORDERED: ROBA500T PO (10:05)
[2017-01-11] MEDS ORDERED: INDO25CA PO (10:05)
[2017-01-11] MEDS ORDERED: VALI5TAB PO (10:07)
[2017-01-11] MEDS ORDERED: PERC5TAB6 PO (10:07)
[2017-01-11] MEDS ORDERED: METHOCARBAMOL 500 MG TAB PO ONE (10:15)
[2017-01-11] MEDS ORDERED: INDOMETHACIN 25 MG CAP PO ONE (10:15)
== END 2017-01-11 10:25 | disposition home or self-care (01) ==
LOC: M ED 10:12
DX: S29.012A Strain of muscle and tendon of back wall of thorax, initial encounter (principal); X50.0XXA Overexertion from strenuous movement or load, initial encounter; Y92.238 Other place in hospital as the place of occurrence of the external cause; Y93.89 Activity, other specified; Y99.0 Civilian activity done for income or pay

== ENCOUNTER 2017-01-17 10:48 | Emergency (ER) | payer BC, OTHER ==
[~2017-01-17] VITALS: Ht 182.9 cm; Wt 95.7 kg
[~2017-01-17 10:48] MED LIST changes: +INDO25CA PO; +PERC5TAB6 PO; +ROBA500T PO; +TYLE325T5 PO; +VALI5TAB PO
[2017-01-17 10:49] VITALS: BP 130/93
== END 2017-01-17 12:05 | disposition home or self-care (01) ==
LOC: M ED 11:36
DX: S29.012D Strain of muscle and tendon of back wall of thorax, subsequent encounter (principal); X50.0XXD Overexertion from strenuous movement or load, subsequent encounter; M54.5 Low back pain; G89.29 Other chronic pain

== ENCOUNTER → 2017-01-21 | Outpatient (CLI) | payer BC ==
--- NOTE | 2017-01-24 08:54 | REP ---
MRI CERVICAL SPINE WITHOUT CONTRAST: 01/21/2017. Comparison: 12/20/2014, CT 12/07/2016. Technique: Sagittal T1, T2 and STIR images with axial T1 and T2 sequences provided. Slight loss of lordosis is noted. Vertebral body heights and marrow signal are normal through C7. There is an old minor anterior T1 compression deformity, grade 1 with no interval loss of height. There is spondylosis with disc space narrowing at C5-6 and loss of disc water from C2-3 through C5-6. Cervical cord shows no intrinsic signal abnormality, syrinx, atrophy or mass. Craniocervical junction is intact. At C2-3, no disc bulge herniation and no spinal or foraminal stenosis. At C3-4, there is a broad-based disc bulge with mild central disc protrusion thinning subarachnoid space but not compressing or indenting the cord. Cross-sectional area of the canal was adequate. Foramina are adequate. At C4-5, there is no significant disc bulge or herniation and no spinal or foraminal stenosis. At C5-6, there is a mild small central disc protrusion not abutting or indenting the cord surface. It does thin the subarachnoid space, foramina adequate. Cross-sectional area of the canal adequate. At C6-7 and C7-T1, there is no disc bulge herniation and no spinal or foraminal stenosis. Visible levels in the upper thoracic spine show no spinal or foraminal stenosis on the sagittal images. Impression: 1. Small C5-6 central disc protrusion without spinal or foraminal stenosis. 2. At C3-4 a broad-based disc bulge with some small central disc protrusion, it also thins subarachnoid space but does not cause cord compression. Foramina adequate at all levels in the cervical spine. No abnormalities of the upper thoracic region except for mild grade 1 compression deformity of T1 which is old and stable. 3. Normal cervical cord and craniocervical junction. Signed by Moi Neil MD 01/24/2017 01:27 P
== END ==
LOC: M RAD 16:47
PROVIDERS: ATTEND Internal Medicine
DX: M50.20 Other cervical disc displacement, unspecified cervical region (principal)

== ENCOUNTER → 2017-01-25 | Outpatient (CLI) | payer BC ==
[2017-01-25 11:04] LABS: MEAN CORPUSCULAR HEMOGLOBIN 32.4 pg (27.0-33.0); MEAN CORPUSCULAR HGB CONC 34.3 g/dl (32.0-36.5); MEAN CORPUSCULAR VOLUME 94.5 fl (80.0-96.0); RED CELL DISTRIBUTION WIDTH 12.3 % (11.5-14.5); WHITE BLOOD COUNT 4.9 K/mm3 (4.0-10.0)
[2017-01-25 11:26] LABS: ALBUMIN 4.2 GM/DL (3.2-5.2); ALKALINE PHOSPHATASE 73 U/L (45-117); ALT/SGPT 38 U/L (12-78); ANION GAP 6 MEQ/L (8-16); AST/SGOT 20 U/L (15-37); BILIRUBIN,TOTAL 0.4 MG/DL (0.2-1.0); BLOOD UREA NITROGEN 16 MG/DL (7-18); CALCIUM LEVEL 9.4 MG/DL (8.5-10.1); CARBON DIOXIDE LEVEL 31 MEQ/L (21-32); CHLORIDE LEVEL 103 MEQ/L (98-107); CHOLESTEROL LEVEL 250 MG/DL (<200); CREATININE FOR GFR 1.07 MG/DL (0.70-1.30); GLOMERULAR FILTRATION RATE > 60.0 (>60); GLUCOSE, FASTING 83 MG/DL (70-105); SODIUM LEVEL 140 MEQ/L (136-145); TOTAL PROTEIN 7.2 GM/DL (6.4-8.2); TRIGLYCERIDES LEVEL 108 MG/DL (<150)
== END ==
LOC: M LAB 09:46
PROVIDERS: ATTEND Family Medicine
DX: D64.9 Anemia, unspecified (principal); R53.83 Other fatigue; E03.9 Hypothyroidism, unspecified

== ENCOUNTER → 2017-02-02 | Emergency (ER) | payer OTHER, BC ==
[~2017-02-02] VITALS: Ht 182.9 cm; Wt 95.3 kg
[~2017-02-02] MED LIST changes: +CYCL10TA PO; +IBUP600T26 PO; +LEVO88TA3; +OXYCODONE/APAP 5MG/325MG(BULK FOR ED) 1 TABLET PO ONE; +SOMA350T PO
[2017-02-02 22:27] VITALS: BP 136/75
== END | disposition home or self-care (01) ==
LOC: M ED 22:59
DX: S46.911A Strain of unspecified muscle, fascia and tendon at shoulder and upper arm level, right arm, initial encounter (principal); X58.XXXA Exposure to other specified factors, initial encounter; Y92.29 Other specified public building as the place of occurrence of the external cause; Y93.F9 Activity, other caregiving; Y99.0 Civilian activity done for income or pay; M54.9 Dorsalgia, unspecified

== ENCOUNTER 2017-02-08 13:49 | Emergency (ER) | payer OTHER, BC ==
[~2017-02-08] VITALS: Ht 182.9 cm; Wt 95.3 kg
[~2017-02-08 13:49] MED LIST changes: -LEVO88TA3; -OXYCODONE/APAP 5MG/325MG(BULK FOR ED) 1 TABLET PO ONE; -SOMA350T PO
[2017-02-08 14:08] VITALS: BP 133/85
[2017-02-08] MEDS ORDERED: LEVO88TA3 (14:13)
[2017-02-08] MEDS ORDERED: IBUP600T26 PO (14:41)
[2017-02-08] MEDS ORDERED: SOMA350T PO (14:41)
== END 2017-02-08 15:04 | disposition home or self-care (01) ==
LOC: M ED 14:57
DX: S46.911D Strain of unspecified muscle, fascia and tendon at shoulder and upper arm level, right arm, subsequent encounter (principal); X58.XXXD Exposure to other specified factors, subsequent encounter; Y92.89 Other specified places as the place of occurrence of the external cause; M54.9 Dorsalgia, unspecified; E07.9 Disorder of thyroid, unspecified; Z79.899 Other long term (current) drug therapy

== ENCOUNTER 2017-11-01 20:58 | Emergency (ER) | payer OTHER, BC ==
[2017-11-01] MEDS: NORCO 5/325MG TABLET (BULK FOR ED) PO (22:00)
== END 2017-11-01 22:11 | disposition home or self-care (01) ==
LOC: M ED 20:58
DX: S39.012A Strain of muscle, fascia and tendon of lower back, initial encounter (principal); W18.49XA Other slipping, tripping and stumbling without falling, initial encounter; Y92.89 Other specified places as the place of occurrence of the external cause; E07.9 Disorder of thyroid, unspecified; Z79.899 Other long term (current) drug therapy
CPT/HCPCS: 99283

== ENCOUNTER 2017-11-23 20:02 | Emergency (ER) | payer OTHER ==
[2017-11-23] MEDS: BACLOFEN 10 MG TAB PO (22:55)
[2017-11-23] MEDS: oxyCODONE 5MG TAB PO (22:56)
== END 2017-11-23 23:00 | disposition home or self-care (01) ==
LOC: M ED 20:02
DX: G89.29 Other chronic pain (principal); M54.5 Low back pain; F11.20 Opioid dependence, uncomplicated; G43.909 Migraine, unspecified, not intractable, without status migrainosus; E03.9 Hypothyroidism, unspecified; Z79.890 Hormone replacement therapy
CPT/HCPCS: 99283

== ENCOUNTER → 2017-11-25 | Outpatient (CLI) | payer OTHER | LOC: M RAD 13:48 | DX: M54.89 Other dorsalgia (principal); M54.30 Sciatica, unspecified side | CPT/HCPCS: 72110 ==

== ENCOUNTER 2018-05-20 16:44 | Emergency (ER) | payer OTHER ==
[2018-05-20] MEDS: PERCOCET 5MG/325MG TAB PO (17:30)
== END 2018-05-20 17:46 | disposition home or self-care (01) ==
LOC: M ED 16:44
DX: S40.011A Contusion of right shoulder, initial encounter (principal); W22.8XXA Striking against or struck by other objects, initial encounter; Y92.59 Other trade areas as the place of occurrence of the external cause; M54.10 Radiculopathy, site unspecified
CPT/HCPCS: 99283

== ENCOUNTER 2018-07-01 13:55 | Emergency (ER) | payer OTHER ==
[2018-07-01 17:46] LABS: INFLUENZA A AMPLIFICATION NEGATIVE (NEGATIVE); INFLUENZA B AMPLIFICATION NEGATIVE (NEGATIVE); RSV AMPLIFICATION NEGATIVE (NEGATIVE)
== END 2018-07-01 18:49 | disposition home or self-care (01) ==
LOC: M ED 13:55
DX: R07.89 Other chest pain (principal); J20.8 Acute bronchitis due to other specified organisms; R00.1 Bradycardia, unspecified
CPT/HCPCS: 71045

== ENCOUNTER 2018-10-15 14:10 | Emergency (ER) | payer OTHER, SELFPAY ==
[~2018-10-15] VITALS: Ht 182.9 cm; Wt 95.5 kg
[2018-10-15 14:10] VITALS: BP 119/69
[~2018-10-15 14:10] MED LIST changes: -CYCL5TA PO; +CYCL5TAB PO; +GABA-843 PO; +IBUP-1022 PO; -IBUP600T26 PO; +LEVO88TA3; +NAPR-885 PO; -NAPR500T2 PO; +NORCOTAB PO; +PERC5TAB12 PO; -PERC5TAB6 PO; +SOMA350T PO
[2018-10-15] MEDS ORDERED: LEVO100T5 PO (14:23)
[2018-10-15] MEDS ORDERED: NAPROXEN 250 MG TAB PO ONE (14:45)
--- NOTE | 2018-10-15 14:54 | REP ---
Clinical: Pain. Technique: AP and lateral views of the right forearm. Findings: No acute fracture dislocation. Skeletal structures, joint spaces, and surrounding soft tissues appear normal. Impression: Normal right forearm radiographs. Electronically Signed by Hernandez Tinoco MD 10/15/2018 02:45 P
== END 2018-10-15 15:03 | disposition home or self-care (01) ==
LOC: M ED 14:10
DX: S59.911A Unspecified injury of right forearm, initial encounter (principal); X50.3XXA Overexertion from repetitive movements, initial encounter; Y92.099 Unspecified place in other non-institutional residence as the place of occurrence of the external cause; Y93.89 Activity, other specified; Y99.9 Unspecified external cause status; G43.909 Migraine, unspecified, not intractable, without status migrainosus; E03.9 Hypothyroidism, unspecified; Z79.899 Other long term (current) drug therapy

== ENCOUNTER 2020-08-21 10:56 | Emergency (ER) | payer MEDICAID, SELFPAY ==
[~2020-08-21] VITALS: Ht 182.9 cm; Wt 74.3 kg
[~2020-08-21 10:56] MED LIST changes: +CYCL-707 PO; -CYCL10TA PO; +GABA-282 PO; -GABA-843 PO; +HYDR-3715 PO; +INDO-16 PO; -INDO25CA PO; +LEVO100T5 PO; -NORCOTAB PO
[2020-08-21] MEDS ORDERED: KETOROLAC 30 MG/ML 1ML VIAL IV ONE (11:30)
[2020-08-21] MEDS ORDERED: MORPHINE 4 MG/ML 1ML VIAL/SYRINGE (J2270) IV ONE (11:30)
[2020-08-21] MEDS ORDERED: NS 1,000 ML IV ONE (11:30)
[2020-08-21] MEDS ORDERED: ONDANSETRON 4MG/2ML VIAL IV ONE (11:30)
[2020-08-21 11:57] LABS: BASO % 0.4 % (0.0-1.0); EOS # 0.1 10^3/uL (0.0-0.5); EOS % 2.5 % (0.0-3.0); HEMATOCRIT 44.3 % (42.0-52.0); HEMOGLOBIN 15.1 g/dl (13.5-17.5); LYMPH # 1.4 10^3/uL (1.5-5.0); LYMPH % 29.6 % (24.0-44.0); MEAN CORPUSCULAR HEMOGLOBIN 30.9 pg (27.0-33.0); MEAN CORPUSCULAR HGB CONC 34.1 g/dl (32.0-36.5); MEAN CORPUSCULAR VOLUME 90.6 fl (80.0-96.0); MONO # 0.3 10^3/uL (0.0-0.8); NEUTROPHILS # 2.9 10^3/uL (1.5-8.5); NEUTROPHILS % 60.3 % (36.0-66.0); PLATELET COUNT, AUTOMATED 237 10^3/uL (150-450); RED BLOOD COUNT 4.89 10^6/uL (4.30-6.10); WHITE BLOOD COUNT 4.9 10^3/uL (4.0-10.0)
--- NOTE | 2020-08-21 12:31 | REP ---
INDICATION: right flank pain COMPARISON: None. TECHNIQUE: CT Scan of the abdomen and pelvis was performed without intravenous contrast. Sagittal and coronal reconstruction images performed. FINDINGS: Lung bases: Unremarkable. Liver: Grossly unremarkable. Gallbladder: Unremarkable. Spleen: Grossly unremarkable.. Adrenals: Normal. Pancreas: Grossly unremarkable.. Kidneys: There is a punctate calcification in the mid right renal collecting system. There is minimal dilatation of the right ureter which appears to be due to a punctate calculus at the right ureterovesical junction as seen on image number 125. No left renal stone is seen. The left ureter is normal in caliber. Small and large bowel: Grossly unremarkable.. Free fluid: None. Abdominal aorta: No aneurysm. Adenopathy: None. Appendix: Not inflamed. Osseous structures: Unremarkable. Pelvis: No mass. No bladder calculus seen. A scrotal hydrocele is suspected. IMPRESSION: There is a punctate calcification in the mid right renal collecting system. There is minimal dilatation of the right ureter which appears to be due to a punctate calculus at the right ureterovesical junction as seen on image number [id number]. Scrotal hydrocele suspected. <Electronically signed by Ventura Sher > 08/21/20 [id number]
[2020-08-21 12:43] LABS: ALBUMIN 4.2 GM/DL (3.2-5.2); ALT/SGPT 17 U/L (12-78); BILIRUBIN,DIRECT 0.1 MG/DL (0.0-0.2); BILIRUBIN,TOTAL 0.4 MG/DL (0.2-1.0); BLOOD UREA NITROGEN 16 MG/DL (7-18); CALCIUM LEVEL 9.5 MG/DL (8.5-10.1); CARBON DIOXIDE LEVEL 23 MEQ/L (21-32); CHLORIDE LEVEL 109 MEQ/L (98-107); GLOMERULAR FILTRATION RATE > 60.0 (>60); GLUCOSE, FASTING 125 MG/DL (70-100); LIPASE 92 U/L (73-393); POTASSIUM SERUM 3.3 MEQ/L (3.5-5.1); SODIUM LEVEL 140 MEQ/L (136-145); TOTAL PROTEIN 6.9 GM/DL (6.4-8.2)
[2020-08-21] MEDS ORDERED: LIDOCAINE 2% 5ML JELLY UROJET TOP ONE (13:00)
[2020-08-21] MEDS ORDERED: IBUP-1022 PO (13:37)
[2020-08-21] MEDS ORDERED: NORC1TAB7 PO (13:37)
[2020-08-21 14:14] VITALS: BP 122/68
== END 2020-08-21 14:16 | disposition home or self-care (01) ==
LOC: M ED 10:56
DX: N23 Unspecified renal colic (principal); M54.9 Dorsalgia, unspecified; G89.29 Other chronic pain; R11.0 Nausea
CPT/HCPCS: 51701; 74176; 80048; 80076; 81001; 83690; 85025; 96361; 96374; 96375; 99284; J1885; J2270; J2405

== ENCOUNTER 2020-11-11 14:18 | Emergency (ER) | payer MEDICAID, SELFPAY ==
[~2020-11-11] VITALS: Ht 180.3 cm; Wt 71.6 kg
[~2020-11-11 14:18] MED LIST changes: +NORC1TAB7 PO
[2020-11-11] MEDS ORDERED: AUGMENTIN 875 MG TAB PO ONE (15:05)
[2020-11-11] MEDS ORDERED: NORCO, ANEXSIA 5/325MG TABLET (HYDROcodone/ACETAMINOPHEN) PO ONE (15:05)
[2020-11-11] MEDS ORDERED: AUGM875T28 PO (15:06)
[2020-11-11 15:08] VITALS: BP 134/84
== END 2020-11-11 15:23 | disposition home or self-care (01) ==
LOC: M ED 14:18
DX: K08.89 Other specified disorders of teeth and supporting structures (principal); K02.9 Dental caries, unspecified

== ENCOUNTER → 2021-12-10 | Outpatient (REF) ==
[~2021-12-10] MED LIST changes: +AUGM875T28 PO
== END ==
LOC: M PLAIMG 11:47
PROVIDERS: ATTEND Internal Medicine
DX: M25.511 Pain in right shoulder (principal)

== ENCOUNTER 2023-05-09 09:34 | Emergency (ER) | payer MEDICAID, OTHER ==
[~2023-05-09] VITALS: Ht 182.9 cm; Wt 76.2 kg
[2023-05-09 10:03] LABS: HEMATOCRIT 43.5 % (42.0-52.0); HEMOGLOBIN 14.8 g/dl (13.5-17.5); MEAN CORPUSCULAR HEMOGLOBIN 31.6 pg (27.0-33.0); MEAN CORPUSCULAR VOLUME 92.8 fl (80.0-96.0); PLATELET COUNT, AUTOMATED 205 10^3/uL (150-450); RED BLOOD COUNT 4.69 10^6/uL (4.30-6.10); WHITE BLOOD COUNT 4.7 10^3/uL (4.0-10.0)
[2023-05-09] MEDS ORDERED: ONDANSETRON 4MG 2ML VIAL IV ONE (10:05)
[2023-05-09] MEDS ORDERED: KETOROLAC 30 MG/ML 1ML VIAL IV ONE (10:05)
[2023-05-09] MEDS ORDERED: NS 1,000 ML IV ONE (10:05)
[2023-05-09] MEDS ORDERED: MORPHINE 4 MG/ML 1ML VIAL IV ONE (11:10)
[2023-05-09] MEDS ORDERED: cefTRIAXone SOD 1 GM in D5W MINI-BAG PLUS 50 ML IV ONE (11:10)
[2023-05-09 11:48] LABS: APPEARANCE, URINE HAZY (CLEAR); BACTERIA, URINE AUTO NEGATIVE (NEGATIVE); BILIRUBIN, URINE AUTO NEGATIVE (NEGATIVE); BLOOD, URINE BLOOD 3+ (NEGATIVE); CALCIUM OXALATE CRYSTALS SMALL; COLOR, URINE YELLOW (YELLOW); GLUCOSE, URINE (UA) AUTO NEGATIVE (NEGATIVE); KETONE, URINE AUTO NEGATIVE (NEGATIVE); LEUKOCYTE ESTERASE, URINE AUTO NEGATIVE (NEGATIVE); MUCUS, URINE SMALL (NEGATIVE); NITRITE, URINE AUTO NEGATIVE (NEGATIVE); PROTEIN, URINE AUTO 1+ mg/dL (NEGATIVE); RBC, URINE AUTO 2 /HPF (0-3); SPECIFIC GRAVITY URINE AUTO 1.018 (1.002-1.035); SQUAMOUS EPITHELIAL CELL UR AU 0 /HPF (0-6); WBC, URINE AUTO 3 /HPF (0-3)
[2023-05-09] MEDS ORDERED: CIPR500S PO (12:48)
[2023-05-09] MEDS ORDERED: DICY20TA3 PO (12:48)
[2023-05-09 13:03] VITALS: BP 112/69; TEMP 98.2; O2SAT 97
== END 2023-05-09 13:03 | disposition home or self-care (01) ==
LOC: M ED 09:34
DX: K52.9 Noninfective gastroenteritis and colitis, unspecified (principal); N20.0 Calculus of kidney
CPT/HCPCS: 74176; 80047; 81001; 85027; 96361; 96365; 96375; 99283; J0696; J1885; J2405

== ENCOUNTER 2023-05-15 07:07 | Emergency (ER) | payer OTHER ==
[~2023-05-15] VITALS: Ht 182.9 cm; Wt 76.8 kg
[~2023-05-15 07:07] MED LIST changes: +CIPR500S PO; +DICY20TA3 PO
[2023-05-15 07:09] VITALS: BP 123/92; TEMP 98.5; O2SAT 97
[2023-05-15] MEDS ORDERED: NS 1,000 ML IV ONE ×2 (07:40→08:25)
[2023-05-15] MEDS ORDERED: ONDANSETRON 4MG 2ML VIAL IV ONE (07:40)
[2023-05-15] MEDS ORDERED: MORPHINE 4 MG/ML 1ML VIAL IV ONE ×2 (07:40→10:10)
[2023-05-15] MEDS ORDERED: KETOROLAC 30 MG/ML 1ML VIAL IV ONE (07:40)
[2023-05-15 08:02] LABS: BASO % 0.3 % (0.0-1.0); EOS # 0.2 10^3/uL (0.0-0.5); EOS % 2.6 % (0.0-3.0); HEMATOCRIT 44.7 % (42.0-52.0); HEMOGLOBIN 14.9 g/dl (13.5-17.5); LYMPH # 2.8 10^3/uL (1.5-5.0); LYMPH % 43.3 % (24.0-44.0); MEAN CORPUSCULAR HEMOGLOBIN 31.6 pg (27.0-33.0); MEAN CORPUSCULAR HGB CONC 33.3 g/dl (32.0-36.5); MEAN CORPUSCULAR VOLUME 94.9 fl (80.0-96.0); MONO # 0.4 10^3/uL (0.0-0.8); MONO % 6.9 % (2.0-8.0); NEUTROPHILS % 46.6 % (36.0-66.0); PLATELET COUNT, AUTOMATED 206 10^3/uL (150-450); RED BLOOD COUNT 4.71 10^6/uL (4.30-6.10); WHITE BLOOD COUNT 6.4 10^3/uL (4.0-10.0)
[2023-05-15 08:23] LABS: LIPASE 28 U/L (12-53)
[2023-05-15 08:25] LABS: ALBUMIN 4.1 G/DL (3.2-5.2); ALKALINE PHOSPHATASE 69 U/L (46-116); ALT/SGPT 22 U/L (7.0-40); AMYLASE 53 U/L (30-118); AST/SGOT 14 U/L (<34); BILIRUBIN,DIRECT 0.2 MG/DL (<0.4); BILIRUBIN,TOTAL 0.5 MG/DL (0.3-1.2); BLOOD UREA NITROGEN 9 MG/DL (9-23); CALCIUM LEVEL 9.2 MG/DL (8.5-10.1); CARBON DIOXIDE LEVEL 26 MMOL/L (20-31); CHLORIDE LEVEL 106 MMOL/L (98-107); CREATININE FOR GFR 0.78 MG/DL (0.70-1.30); GLOMERULAR FILTRATION RATE > 60.0 (>60); GLUCOSE, FASTING 131 MG/DL (60-100); POTASSIUM SERUM 3.2 MMOL/L (3.5-5.1); SODIUM LEVEL 142 MMOL/L (136-145); TOTAL PROTEIN 6.7 G/DL (5.7-8.2)
[2023-05-15] MEDS ORDERED: LIDOCAINE 2% 5ML JELLY UROJET TOP ONE (08:45)
[2023-05-15] MEDS ORDERED: POTASSIUM CHLORIDE 10MEQ SR TABLET PO ONE (09:00)
[2023-05-15] MEDS ORDERED: TAMSULOSIN 0.4 MG CAP PO ONE (10:10)
[2023-05-15] MEDS ORDERED: ACETAMINOPHEN TAB 650MG DOSE (2X325MG) PO ONE (10:15)
[2023-05-15] MEDS ORDERED: PERCOCET 5MG/325MG TAB PO ONE (11:35)
[2023-05-15] MEDS ORDERED: BACT800T5 PO (11:40)
[2023-05-15] MEDS ORDERED: IBUP-1022 PO (11:40)
[2023-05-15] MEDS ORDERED: BACTRIM 160MG/800MG DS TAB PO ONE (11:40)
[2023-05-15] MEDS ORDERED: FLOM0.4C39 PO (11:40)
[2023-05-15] MEDS ORDERED: OXYC1TAB23 PO (11:41)
== END 2023-05-15 11:55 | disposition home or self-care (01) ==
LOC: M ED 07:07
DX: N13.30 Unspecified hydronephrosis (principal); N23 Unspecified renal colic; F17.290 Nicotine dependence, other tobacco product, uncomplicated; Z87.442 Personal history of urinary calculi; N43.3 Hydrocele, unspecified
CPT/HCPCS: 74176; 80047; 80048; 80076; 81001; 82150; 83605; 83690; 85025; 87086; 93041; 96361; 96374; 96375; 96376; 99284; J1885; J2405